=== PATIENT | female | born 1950 | race Caucasian/White ===

== ENCOUNTER 2019-09-20 04:20 | Inpatient (IN) | payer MEDICARE, OTHER ==
[~2019-09-20] VITALS: Ht 152.4 cm; Wt 40.2 kg
[2019-09-20] VITALS (11 sets, daily range): BP systolic 113–130; BP diastolic 52–73
--- NOTE | 2019-09-20 05:00 | NUR ---
Admit Note: Patient arrived to unit via gurney and escorted by EMS. Patient orientated to room and MD phoned for admit orders. Patient's VSS w/ mild c/o pain upon admission. Plan of Care discussed, admit packet reviewed and home meds/allergies verified with patient. Fracture protocol in place, with KAI and ice pack applied to LLE. Patient in bed, call light within reach and no other needs voiced at this time.
[2019-09-20] MEDS ORDERED: ONDANSETRON PF 4 MG/2 ML VIAL. IV PRN ×2 (05:15→10:30)
[2019-09-20] MEDS: IV NORMAL SALINE 1000ML BAG 1,000 ML IV SCH ×2 (05:50→14:49)
[2019-09-20] MEDS: fentaNYL PF VIAL 100 MCG/2 ML VIAL IVP PRN ×2 (05:50→10:05)
[2019-09-20] MEDS ORDERED: ceFAZolin SODIUM IV Push 1 GM VIAL. IVP ONE (07:45)
[2019-09-20 07:55] LABS: BASO % 1 % (0-3); EOS % 0 % (0-3); HEMATOCRIT 40.2 % (36.0-47.0); HEMOGLOBIN 13.5 g/dL (12.0-15.5); LYMPH # 0.5 x10^3/uL (1.0-4.8); LYMPH % 9 % (24-48); MEAN CORPUSCULAR HEMOGLOBIN 31 pg (25-35); MEAN CORPUSCULAR HGB CONC 34 g/dL (31-37); MEAN CORPUSCULAR VOLUME 92 fL (79-100); MONO # 0.3 x10^3/uL (0.0-1.1); MONO % 6 % (0-9); NEUT # 4.6 x10^3/uL (1.8-7.7); NEUT % 85 % (31-73); PLATELET COUNT 128 x10^3/uL (140-400); RED BLOOD COUNT 4.37 x10^6/uL (3.50-5.40); RED CELL DISTRIBUTION WIDTH 13.8 % (11.5-14.5); WHITE BLOOD COUNT 5.5 x10^3/uL (4.0-11.0)
[2019-09-20] MEDS ORDERED: AMLO5TAB10 PO (07:58)
[2019-09-20] MEDS ORDERED: ATOR80TA72 PO (07:58)
[2019-09-20] MEDS ORDERED: ASPI81TA50 PO (07:58)
[2019-09-20] MEDS ORDERED: ALBU2.5V8 IH (07:58)
[2019-09-20] MEDS ORDERED: MORPHINE SULFATE 5 MG, KETOROLAC 30MG VIAL 30 MG, ROPIVacaine 0.5% PF 60 ML, EPINEPHrin... INT ART ONE ×5 (08:00)
[2019-09-20 08:04] LABS: PROTHROMBIN TIME PATIENT 12.5 SEC (11.7-14.0)
[2019-09-20 08:10] LABS: ALBUMIN 3.3 g/dL (3.4-5.0); CALCIUM 8.5 mg/dL (8.5-10.1); CREATININE 0.6 mg/dL (0.6-1.0); GFR 99.1; POTASSIUM 4.2 mmol/L (3.5-5.1); TOTAL BILIRUBIN 0.5 mg/dL (0.2-1.0); TOTAL PROTEIN 6.5 g/dL (6.4-8.2)
--- NOTE | 2019-09-20 08:19 | NUR ---
Pt admitted with left hip fracture and surgery plans for today. Would benefit from PT/OT assessment post op. Please write PT/OT eval and treat orders if you agree. Addendum: 09/20/19 at 0819 by MARGRET SANZ PT Amended: Links added.
--- NOTE | 2019-09-20 08:50 | PDOC1 ---
History and Physical Date of Admission Date of Admission DATE: 09/20/19 TIME: 08:30 Identification/Chief Complaint Chief Complaint Right hip fracture Source Source: Patient History of Present Illness History of Present Illness Ms Drake is a 69yo F w/ PMHx COPD, HTN, smoker, HLD, multiple orthopedic surgeries who presented to [facility] ED complaints of falling when she was attempting to put her pants on. Found with left intertrochanteric hip fracture. No history immunosuppression and history of travel. No history of previous fractures. No recent sick contacts. EKG shows a` sinus rhythm at 96 bpm. No findings of acute STEMI with contralateral changes. Platelets 128, otherwise no abnormalities on labs After initial x-ray showed no obvious fracture patient was unable to ambulate due to left hip and leg pain. CT confirmed impacted intratrochanteric fracture of left femur. Past Medical History Cardiovascular: HTN, Hyperlipidemia Pulmonary: COPD Heme/Onc: No pertinent hx Hepatobiliary: No pertinent hx Psych: No pertinent hx Rheumatologic: No pertinent hx Infectious disease: No pertinent hx ENT: No pertinent hx Renal/: No pertinent hx Endocrine: No pertinent hx Dermatology: No pertinent hx Past Surgical History Past Surgical History Carpal tunnel - right, Right shoulder arthroscopy, Back surgery x2 Past Surgical History: Other Family History Family History: Hypertension Social History Smoke: 1 pack per day ALCOHOL: other Drugs: None Current Medications Current Medications Current Medications Ondansetron HCl (Zofran) 4 mg PRN Q4HRS PRN IV NAUSEA/VOMITING 1ST CHOICE; Start 09/20/19 at 05:15 Fentanyl Citrate (Fentanyl 2ml Vial) 50 mcg PRN Q4HRS PRN IVP SEVERE PAIN 7-10 Last administered on 09/20/19at 05:50; Start 09/20/19 at 05:15 Sodium Chloride 1,000 ml @ 75 mls/hr [id number] IV Last administered on 09/20/19at 05:50; Start 09/20/19 at 06:00 Morphine Sulfate 5 mg/Ketorolac Tromethamine 30 mg/Ropivacaine 60 ml/Epinephrine HCl 0.5 mg/Sodium Chloride 100 ml @ 100 mls/hr 1X ONCE INT ART ; Start 09/20/19 at 08:00; Stop 09/20/19 at 08:59 Cefazolin Sodium (Ancef) 1 gm 1X ONCE IVP ; Start 09/20/19 at 07:45; Stop 09/20/19 at 07:47; Status DC Active Scripts Active Reported Proair Hfa Inhaler (Albuterol Sulfate) 8.5 Gm Hfa.aer.ad 2 Puff IH PRN Q4-6HRS PRN 21 Days Aspir-Low (Aspirin) 81 Mg Tablet.dr 1 Tab PO QHS Amlodipine Besylate 5 Mg Tablet 5 Mg PO HS Atorvastatin Calcium 80 Mg Tablet 40 Mg PO QHS Allergies Allergies: Coded Allergies: No Known Allergies (Verified Allergy, Unknown, 09/20/19) ROS General: YES: Fatigue, Malaise; No: Chills, Night Sweats, Appetite, Other PSYCHOLOGICAL ROS: No: Anxiety, Behavioral Disorder, Concentration difficultie, Decreased libido, Depression, Disorientation, Hallucinations, Hostility, Irritablity, Memory difficulties, Mood Swings, Obsessive thoughts, Physical abuse, Sexual abuse, Sleep disturbances, Suicidal ideation, Other Eyes: No Blurry vision, No Decreased vision, No Double vision, No Dry eyes, No Excessive tearing, No Eye Pain, No Itchy Eyes, No Loss of vision, No Photophobia, No Scotomata, No Uses contacts, No Uses glasses, No Other HEENT: No: Heacaches, Visual Changes, Hearing change, Nasal congestion, Nasal discharge, Oral lesions, Sinus pain, Sore Throat, Epistaxis, Sneezing, Snoring, Tinnitus, Vertigo, Vocal changes, Other ALLERGY AND IMMUNOLOGY: No: Hives, Insect Bite Sensitivity, Itchy/Watery Eyes, Nasal Congestion, Post Nasal Drip, Seasonal Allergies, Other Hematological and Lymphatic: No: Bleeding Problems, Blood Clots, Blood Transfusions, Brusing, Night Sweats, Pallor, Swollen Lymph Nodes, Other ENDOCRINE: No: Breast Changes, Galactorrhea, Hair Pattern Changes, Hot Flashes, Malaise/lethargy, Mood Swings, Palpitations, Polydipsia/polyuria, Skin Changes, Temperature Intolerance, Unexpected Weight Changes, Other Breast: No New/Changing Breast Lumps, No Nipple changes, No Nipple discharge, No Other Respiratory: No: Cough, Hemoptysis, Orthopnea, Pleuritic Pain, Shortness of breath, SOB with excertion, Sputum Changes, Stridor, Tachypnea, Wheezing, Other Cardiovascular: No Chest Pain, No Palpitations, No Orthopnea, No Paroxysmal Noc. Dyspnea, No Edema, No Lt Headedness, No Other Gastrointestinal: No Nausea, No Vomiting, No Abdominal Pain, No Diarrhea, No Constipation, No Melena, No Hematochezia, No Other Genitourinary: No Dysuria, No Frequency, No Incontinence, No Hematuria, No Retention, No Discharge, No Urgency, No Pain, No Flank Pain, No Other, No , No , No , No , No , No , No Musculoskeletal: Yes Gait Disturbance, Yes Joint Pain, Yes Joint Swelling, Yes Muscle Pain; No Joint Stiffness, No Muscular Weakness, No Pain In:, No Swelling In:, No Other Neurological: Yes Gait Disturbance; No Behavorial Changes, No Bowel/Bladder ControlChng, No Confusion, No Dizziness, No Headaches, No Impaired Coord/balance, No Memory Loss, No Numbne ss/Tingling, No Seizures, No Speech Problems, No Tremors, No Visual Changes, No Weakness, No Other Skin: No Dry Skin, No Eczema, No Hair Changes, No Lumps, No Mole Changes, No Mottling, No Nail Changes, No Pruritus, No Rash, No Skin Lesion Changes, No Other, No Acne Physical Exam General: Alert, Oriented X3, Cooperative, mild distress HEENT: Atraumatic, PERRLA, EOMI, Mucous membr. moist/pink Lungs: Other (Scattered wheezing) Heart: S1S2, RRR, no thrills, no rubs, no gallops, no murmurs Abdomen: Normal bowel sounds, Soft, No tenderness, No hepatosplenomegaly, No masses Extremities: Other (left hip tender) Skin: No rashes, No breakdown, No significant lesion Neuro: Normal speech, Strength at 5/5 X4 ext, Normal tone, Sensation intact, Cranial nerves 3-12 NL, Reflexes 2+ Psych/Mental Status: Mental status NL, Mood NL Vitals Vitals Vital Signs Date Time Temp Pulse Resp B/P (MAP) Pulse Ox O2 Delivery O2 Flow Rate FiO2 09/20/19 08:00 Room Air 09/20/19 07:00 97.7 87 16 122/67 (85) 98 0.5 97.7 Labs Labs Laboratory Tests Test 09/20/19 07:40 White Blood Count 5.5 x10^3/uL (4.0-11.0) Red Blood Count 4.37 x10^6/uL (3.50-5.40) Hemoglobin 13.5 g/dL (12.0-15.5) Hematocrit 40.2 % (36.0-47.0) Mean Corpuscular Volume 92 fL (79-100) Mean Corpuscular Hemoglobin 31 pg (25-35) Mean Corpuscular Hemoglobin Concent 34 g/dL (31-37) Red Cell Distribution Width 13.8 % (11.5-14.5) Platelet Count 128 x10^3/uL (140-400) Neutrophils (%) (Auto) 85 % (31-73) Lymphocytes (%) (Auto) 9 % (24-48) Monocytes (%) (Auto) 6 % (0-9) Eosinophils (%) (Auto) 0 % (0-3) Basophils (%) (Auto) 1 % (0-3) Neutrophils # (Auto) 4.6 x10^3/uL (1.8-7.7) Lymphocytes # (Auto) 0.5 x10^3/uL (1.0-4.8) Monocytes # (Auto) 0.3 x10^3/uL (0.0-1.1) Eosinophils # (Auto) 0.0 x10^3/uL (0.0-0.7) Basophils # (Auto) 0.0 x10^3/uL (0.0-0.2) Prothrombin Time 12.5 SEC (11.7-14.0) Prothromb Time International Ratio 1.0 (0.8-1.1) Laboratory Tests Test 09/20/19 07:40 White Blood Count 5.5 x10^3/uL (4.0-11.0) Red Blood Count 4.37 x10^6/uL (3.50-5.40) Hemoglobin 13.5 g/dL (12.0-15.5) Hematocrit 40.2 % (36.0-47.0) Mean Corpuscular Volume 92 fL (79-100) Mean Corpuscular Hemoglobin 31 pg (25-35) Mean Corpuscular Hemoglobin Concent 34 g/dL (31-37) Red Cell Distribution Width 13.8 % (11.5-14.5) Platelet Count 128 x10^3/uL (140-400) Neutrophils (%) (Auto) 85 % (31-73) Lymphocytes (%) (Auto) 9 % (24-48) Monocytes (%) (Auto) 6 % (0-9) Eosinophils (%) (Auto) 0 % (0-3) Basophils (%) (Auto) 1 % (0-3) Neutrophils # (Auto) 4.6 x10^3/uL (1.8-7.7) Lymphocytes # (Auto) 0.5 x10^3/uL (1.0-4.8) Monocytes # (Auto) 0.3 x10^3/uL (0.0-1.1) Eosinophils # (Auto) 0.0 x10^3/uL (0.0-0.7) Basophils # (Auto) 0.0 x10^3/uL (0.0-0.2) Prothrombin Time 12.5 SEC (11.7-14.0) Prothromb Time International Ratio 1.0 (0.8-1.1) Images Images CT pelvis without contrast: No abnormality seen at the sacrum, iliac bones pubic bones or shift. The right proximal femur is intact. The left proximal femur however shows a i ntratrochanteric fracture with impaction. Hip joints are maintained. IMPRESSION: Impacted intratrochanteric fracture of the left femur. CT lumbar spine without contrast: The vertebral bodies of the lumbar spine are intact with no evidence of acute fracture or subluxation. The posterior elements are intact. The intervertebral disc at the L1-2, L2-3 and L3-4 disc levels are maintained and there is no spinal stenosis. At the L4-5 disc level, there is moderate loss of disc height and vacuum phenomena present in with the hypertrophic facet changes bilaterally there is moderate central canal stenosis as well as bilateral lateral recess stenosis without significant neural foraminal stenosis. At the L5-S1 disc level there is severe loss of disc height and back disc phenomena and there is some posterior disc bulging and facet hypertrophy but no significant spinal stenosis is evident. No acute abnormality seen at the apex. Sacroiliac joints are maintained. IMPRESSION: Degenerative disc disease at the L4-5 and L5-S1 disc levels with moderate central canal and bilateral lateral recess stenosis at the L4-5 level but without significant stenosis at the L5-S1 disc level. Single view pelvis and single view left hip dated 09/19/2019. AP view pelvis shows normal bony alignment. No displaced fracture. No acute osseous or articular abnormality. Pelvic ring is intact. There is mild spondylotic change of the lower lumbar spine with sacralization of L5 on the left. Single view left hip shows normal bony alignment. No displaced fracture. Mild hypertrophic change of the left hip joint. No acute osseous or articular abnormality. IMPRESSION: 1. No evidence of displaced left hip fracture. If there is persistent clinical concern for occult fracture or insufficiency fracture, MRI would better evaluate. 2. Degenerative changes as described. Single view chest dated 09/19/2019. Single upright portable exam performed. Heart and mediastinal contours within normal limits. Lungs are somewhat hyperinflated but otherwise clear. No co nsolidation or pleural effusion. No pneumothorax. No apparent rib fracture. IMPRESSION: No acute radiographic abnormality. VTE Prophylaxis Ordered VTE Prophylaxis Devices: No VTE Pharmacological Prophylaxi: Yes Assessment/Plan Assessment/Plan A/P: Fall - traumatic, accidental. WIll have PT work on balance post-operatively Left hip fracture - Intertrochanteric. To OR. No further testing necessary. Pain control COPD - will cont prn nebs Smoker - nicotine patch. Counseled on cessation HLD - cont statin OA - will cont pain control VItamin D deficiency - likely playing a role. 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
--- NOTE | 2019-09-20 09:28 | PDOC2 ---
DONLAUREN HAND REAMER 09/20/19 0928: CONSULT Date of Consult Date of Consult DATE: 09/20/19 TIME: 09:09 Reason for Consult Reason for Consult: Left hip pain after a fall at home while attempting to change clothes. Referring Physician Referring Physician: Dr. Taveras Identification/Chief Complaint Chief Complaint Left hip pain after fall at home with left intertrochanteric hip fracture. Source Source: Caregiver, Chart review, Patient History of Present Illness Reason for Visit: The patient was at her home last evening and was attempting to change close into her pajamas and had her leg get caught and fell landing onto her left hip. She was taken to [facility] emergency department and had an x-ray at that point which was inconclusive and was followed with a CT scan that showed the left hip fracture. He was transferred by ambulance to [facility] Past Medical History Cardiovascular: No pertinent hx Pulmonary: COPD Infectious disease: Other ( has a history of MRSA) Past Surgical History Past Surgical History: Hysterectomy, Other (the patient has had right shoulder surgery 2 and carpal tunnel release on both wrists.) Social History 2 packs per day (and one half packs per day) ALCOHOL: rare Drugs: None Lives: with Family Domestic Violence: Neg Current Problem List Problem List COPD ,right hip fracture Current Medications Current Medications Current Medications Ondansetron HCl (Zofran) 4 mg PRN Q4HRS PRN IV NAUSEA/VOMITING 1ST CHOICE; Start 09/20/19 at 05:15 Fentanyl Citrate (Fentanyl 2ml Vial) 50 mcg PRN Q4HRS PRN IVP SEVERE PAIN 7-10 Last administered on 09/20/19at 05:50; Start 09/20/19 at 05:15 Sodium Chloride 1,000 ml @ 75 mls/hr [id number] IV Last administered on 09/20/19at 05:50; Start 09/20/19 at 06:00 Morphine Sulfate 5 mg/Ketorolac Tromethamine 30 mg/Ropivacaine 60 ml/Epinephrine HCl 0.5 mg/Sodium Chloride 100 ml @ 100 mls/hr 1X ONCE INT ART ; Start 09/20/19 at 08:00; Stop 09/20/19 at 08:59 Cefazolin Sodium (Ancef) 1 gm 1X ONCE IVP ; Start 09/20/19 at 07:45; Stop 09/20/19 at 07:47; Status DC Active Scripts Active Reported Proair Hfa Inhaler (Albuterol Sulfate) 8.5 Gm Hfa.aer.ad 2 Puff IH PRN Q4-6HRS PRN 21 Days Aspir-Low (Aspirin) 81 Mg Tablet.dr 1 Tab PO QHS Amlodipine Besylate 5 Mg Tablet 5 Mg PO HS Atorvastatin Calcium 80 Mg Tablet 40 Mg PO QHS Allergies Allergies: Coded Allergies: No Known Allergies (Verified Allergy, Unknown, 09/20/19) Physical Exam General: Alert, Cooperative, moderate distress Extremities: No clubbing, No cyanosis, Normal pulses Neuro: Normal speech MUSCULOSKELETAL: Abnormal exam of right (patient is unable to move her left leg related to pain. She is able to move her toes, feet and ankles without difficulty bilaterally. The left leg is shortened and externally rotated.) Vitals VITALS Vital Signs Date Time Temp Pulse Resp B/P (MAP) Pulse Ox O2 Delivery O2 Flow Rate FiO2 09/20/19 08:00 Room Air 09/20/19 07:00 97.7 87 16 122/67 (85) 98 0.5 97.7 Labs Labs Laboratory Tests Test 09/20/19 07:40 White Blood Count 5.5 x10^3/uL (4.0-11.0) Red Blood Count 4.37 x10^6/uL (3.50-5.40) Hemoglobin 13.5 g/dL (12.0-15.5) Hematocrit 40.2 % (36.0-47.0) Mean Corpuscular Volume 92 fL (79-100) Mean Corpuscular Hemoglobin 31 pg (25-35) Mean Corpuscular Hemoglobin Concent 34 g/dL (31-37) Red Cell Distribution Width 13.8 % (11.5-14.5) Platelet Count 128 x10^3/uL (140-400) Neutrophils (%) (Auto) 85 % (31-73) Lymphocytes (%) (Auto) 9 % (24-48) Monocytes (%) (Auto) 6 % (0-9) Eosinophils (%) (Auto) 0 % (0-3) Basophils (%) (Auto) 1 % (0-3) Neutrophils # (Auto) 4.6 x10^3/uL (1.8-7.7) Lymphocytes # (Auto) 0.5 x10^3/uL (1.0-4.8) Monocytes # (Auto) 0.3 x10^3/uL (0.0-1.1) Eosinophils # (Auto) 0.0 x10^3/uL (0.0-0.7) Basophils # (Auto) 0.0 x10^3/uL (0.0-0.2) Prothrombin Time 12.5 SEC (11.7-14.0) Prothromb Time International Ratio 1.0 (0.8-1.1) Sodium Level 142 mmol/L (136-145) Potassium Level 4.2 mmol/L (3.5-5.1) Chloride Level 103 mmol/L (98-107) Carbon Dioxide Level 32 mmol/L (21-32) Anion Gap 7 (6-14) Blood Urea Nitrogen 9 mg/dL (7-20) Creatinine 0.6 mg/dL (0.6-1.0) Estimated GFR (Cockcroft-Gault) 99.1 BUN/Creatinine Ratio 15 (6-20) Glucose Level 118 mg/dL (70-99) Calcium Level 8.5 mg/dL (8.5-10.1) Total Bilirubin 0.5 mg/dL (0.2-1.0) Aspartate Amino Transf (AST/SGOT) 22 U/L (15-37) Alanine Aminotransferase (ALT/SGPT) 27 U/L (14-59) Alkaline Phosphatase 106 U/L (46-116) Total Protein 6.5 g/dL (6.4-8.2) Albumin 3.3 g/dL (3.4-5.0) Albumin/Globulin Ratio 1.0 (1.0-1.7) Laboratory Tests Test 09/20/19 07:40 White Blood Count 5.5 x10^3/uL (4.0-11.0) Red Blood Count 4.37 x10^6/uL (3.50-5.40) Hemoglobin 13.5 g/dL (12.0-15.5) Hematocrit 40.2 % (36.0-47.0) Mean Corpuscular Volume 92 fL (79-100) Mean Corpuscular Hemoglobin 31 pg (25-35) Mean Corpuscular Hemoglobin Concent 34 g/dL (31-37) Red Cell Distribution Width 13.8 % (11.5-14.5) Platelet Count 128 x10^3/uL (140-400) Neutrophils (%) (Auto) 85 % (31-73) Lymphocytes (%) (Auto) 9 % (24-48) Monocytes (%) (Auto) 6 % (0-9) Eosinophils (%) (Auto) 0 % (0-3) Basophils (%) (Auto) 1 % (0-3) Neutrophils # (Auto) 4.6 x10^3/uL (1.8-7.7) Lymphocytes # (Auto) 0.5 x10^3/uL (1.0-4.8) Monocytes # (Auto) 0.3 x10^3/uL (0.0-1.1) Eosinophils # (Auto) 0.0 x10^3/uL (0.0-0.7) Basophils # (Auto) 0.0 x10^3/uL (0.0-0.2) Prothrombin Time 12.5 SEC (11.7-14.0) Prothromb Time International Ratio 1.0 (0.8-1.1) Sodium Level 142 mmol/L (136-145) Potassium Level 4.2 mmol/L (3.5-5.1) Chloride Level 103 mmol/L (98-107) Carbon Dioxide Level 32 mmol/L (21-32) Anion Gap 7 (6-14) Blood Urea Nitrogen 9 mg/dL (7-20) Creatinine 0.6 mg/dL (0.6-1.0) Estimated GFR (Cockcroft-Gault) 99.1 BUN/Creatinine Ratio 15 (6-20) Glucose Level 118 mg/dL (70-99) Calcium Level 8.5 mg/dL (8.5-10.1) Total Bilirubin 0.5 mg/dL (0.2-1.0) Aspartate Amino Transf (AST/SGOT) 22 U/L (15-37) Alanine Aminotransferase (ALT/SGPT) 27 U/L (14-59) Alkaline Phosphatase 106 U/L (46-116) Total Protein 6.5 g/dL (6.4-8.2) Albumin 3.3 g/dL (3.4-5.0) Albumin/Globulin Ratio 1.0 (1.0-1.7) Images Images The x-rays from [facility] were inconclusive on the left hip and a CT was performed and dictated no abnormality in the sacrum, iliac bones or right femur. The left proximal femur shows an intertrochanteric fracture with impaction. CT of the lumbar spine indicated no evidence of acute fracture or subluxation there was indication of degenerative disc disease at L4-5 and L5-S1. Assessment/Plan Assessment/Plan Patient with fall at home and received an left hip intertrochanteric impacted fracture. The patient will require surgical fixation with the plan of closed reduction and intramedullary fixation. Patient has intact distal pulses and is able to move her feet, toes and ankle without difficulty. The left hip is externally rotated and shortened. She is nothing by mouth and will proceed to surgery later today with ZULMA Aviles II, MD 09/20/19 1153: CONSULT Assessment/Plan Assessment/Plan Patient was seen and examined by myself. I formulated the treatment plan and discussed the risks, benefits, and alternatives to surgery with the patient and her . Intertrochanteric hip fracture seen on x-ray and CAT scan, we will plan on proceeding with a short intramedullary nail. LAUREN OCHOA APRN Sep 20, 2019 09:28 ZULMA HOFFMANN II, MD Sep 20, 2019 11:53
[2019-09-20] MEDS ORDERED: IV RINGERS,LACTATED 1000ML 1,000 ML IV SCH (10:26)
[2019-09-20] MEDS ORDERED: LIDOCAINE 1% PF 2 ML VIAL. ID PRN (10:30)
[2019-09-20] MEDS ORDERED: HYDROmorphone 2 MG/ML VIAL IV PRN (10:30)
[2019-09-20] MEDS ORDERED: fentaNYL PF VIAL 100 MCG/2 ML VIAL IV PRN (10:30)
[2019-09-20] MEDS ORDERED: PROCHLORPERAZINE 10 MG/2 ML VIAL. IV PRN (10:30)
[2019-09-20] MEDS ORDERED: MORPHINE SULFATE 2 MG/ML VIAL. IV PRN (10:30)
--- NOTE | 2019-09-20 10:36 | NUR ---
SW following. Discussed with RN, pt from home with , pt having surgery today. SW will continue to follow.
[2019-09-20] MEDS ORDERED: LIDOCAINE 2% PF 5 ML VIAL. ONE (10:54)
[2019-09-20] MEDS ORDERED: ONDANSETRON PF 4 MG/2 ML VIAL. ONE (10:54)
[2019-09-20] MEDS ORDERED: PROPOFOL 20 ML IV ONE (10:54)
[2019-09-20] MEDS ORDERED: DEXAMETHASONE SOD PHOS 4 MG/ML VIAL ONE (10:54)
[2019-09-20] MEDS ORDERED: fentaNYL PF VIAL 100 MCG/2 ML VIAL ONE ×3 (10:56→14:06)
--- NOTE | 2019-09-20 11:56 | PDOC4 ---
Operative Note Operative Note Date of procedure: 09/20/2019 Surgeon: Brown Hoffmann Asst.: Saulo Hall, certified nursing assistant Preoperative diagnosis: Closed, displaced, comminuted, left intertrochanteric h ip fracture Postoperative diagnosis: Same Procedure performed: Closed reduction and intramedullary nailing of left hip fracture Anesthesia: Gen. Findings: Acute fracture Blood loss: 150mL Complications: none Components inserted: [employer] TriGen InterTAN nail, 10 x 18, 90 mm lag screw, 30 mm compression screw, 25 mm distal interlocking screw Reason for procedure: Patient is a very pleasant elderly female who had a ground-level fall sustaining the above injury. Id seen her in consultation, please see my consult note for full details. We have discussed the risks, benefits, and alternatives to the above surgery and she wished to proceed. Description of procedure: Patient was greeted in the preoperative area by myself for the correct extremity was verified and marked. She was taken to the operative suite and her antibiotics were started as she was brought back. Once in the operating room, she underwent successful induction of a general anesthetic and was then transferred gently supine to the fracture table. She was placed into the appropriate position, left leg in a traction ski boot and right leg in the well-leg santiago. Padded perineal post was used. Her arms were secured above her chest across a pillow. I then brought in C-arm and perform a reduction maneuver confirming adequate reduction under biplanar fluoroscopy. After this, the left hip and leg were prepped and draped in our usual sterile fashion and we conducted our standard preoperative timeout. After this, I palpated for her greater trochanter and ASIS and alexa a line on skin at the intersection point of these, I then made my skin incision and bluntly dissected down to the tip of the greater trochanter and used biplanar fluoroscopy to identify an appropriate starting point for my guidepin which I then advanced down past the lesser trochanter. I then gained entry to the proximal femur with the entry reamer using the soft tissue protector. After this I impacted my nail into position using fluoroscopy as a guide. I then placed the lateral trocar again skin, and incised skin in accordance with this and bluntly split down to bone. I then seated the trochars and used biplanar fluoroscopy to achieve as close to a center center position with the tip of my guidepin as I was able to. I then used my lateral entry drill and then placed my derotation bar. I then measured and drilled for my lag screw. After this I placed my lag screw followed by my compression screw. I then removed this trocar and placed the distal interlocking screw trocar again skin and made a stab incision and spread down to bone. I then seated this trocar and drilled and measured and then subsequently placed my d istal interlocking screw. I then remove the insertion handle and trochars and took my final images. I was satisfied with fracture reduction and hardware position. The wounds were thoroughly irrigated. I injected my periarticular mixture into the nash-incisional soft tissues. Deep layers were closed with simple interrupted 0 Vicryl. Inverted interrupted 2-0 Vicryl was used for subcu taneous tissue and ana for skin. Sterile dressing was applied after the hip and leg were cleansed and dried. Traction was released after placement of the distal interlocking screw. The bed was reassembled and the perineal post was removed. She was laid gently supine on the fracture table. She was transferred gently supine to the hospital bed and taken to PACU in a stable and extubated condition. Postoperative plan is to allow full weightbearing. She will receive DVT and antibiotic prophylaxis. Shell be readmitted to the hospitalist. She will also receive PT and OT. BROWN HOFFMANN II, MD Sep 20, 2019 11:56
[2019-09-20] MEDS ORDERED: ALBUTEROL SULFATE 2.5 MG/3 ML NEBU. ONE (12:12)
[2019-09-20] MEDS ORDERED: ALBUTEROL SULFATE 8GM INHALER. INH ONE (12:12)
[2019-09-20] MEDS: fentaNYL PF VIAL 100 MCG/2 ML VIAL IV PRN ×3 (13:46→14:08)
[2019-09-20] MEDS ORDERED: ALBUTEROL SULFATE 2.5 MG/3 ML NEBU. INH PRN (14:30)
[2019-09-20] MEDS ORDERED: NICOTINE 21MG PATCH. TD SCH (14:45)
[2019-09-20] MEDS ORDERED: fentaNYL PF VIAL 100 MCG/2 ML VIAL IVP ONE (14:45)
[2019-09-20] MEDS: CHOLECALCIFEROL (VITAMIN D3) 5,000 UNIT CAPSULE PO SCH (14:47)
[2019-09-20] MEDS: ceFAZolin SODIUM IV Push 1 GM VIAL. IVP SCH (19:39)
[2019-09-20] MEDS: oxyCODONE/APAP 5/325 1 TAB TABLET PO PRN (19:40)
[2019-09-20] MEDS: ASPIRIN ENTERIC COATED 81 MG TABLET.DR. PO SCH (19:42)
[2019-09-20] MEDS: ATORVASTATIN CALCIUM 40 MG TABLET. PO SCH (19:42)
[2019-09-20] MEDS: amLODIPine BESYLATE 5 MG TABLET PO SCH (19:44)
[2019-09-20] MEDS ORDERED: NICOTINE 21MG PATCH. TD ONE (21:45)
[2019-09-21] VITALS (7 sets, daily range): BP systolic 112–130; BP diastolic 57–70
[2019-09-21] MEDS: ceFAZolin SODIUM IV Push 1 GM VIAL. IVP SCH ×3 (04:14→21:40)
[2019-09-21] MEDS: oxyCODONE/APAP 5/325 1 TAB TABLET PO PRN ×5 (04:16→21:36)
[2019-09-21 07:43] LABS: BASO % 0 % (0-3); EOS % 0 % (0-3); HEMATOCRIT 32.6 % (36.0-47.0); HEMOGLOBIN 10.9 g/dL (12.0-15.5); LYMPH # 0.7 x10^3/uL (1.0-4.8); LYMPH % 14 % (24-48); MEAN CORPUSCULAR HEMOGLOBIN 31 pg (25-35); MEAN CORPUSCULAR HGB CONC 34 g/dL (31-37); MEAN CORPUSCULAR VOLUME 94 fL (79-100); MONO # 0.3 x10^3/uL (0.0-1.1); MONO % 6 % (0-9); NEUT # 3.9 x10^3/uL (1.8-7.7); NEUT % 79 % (31-73); PLATELET COUNT 93 x10^3/uL (140-400); RED BLOOD COUNT 3.48 x10^6/uL (3.50-5.40); WHITE BLOOD COUNT 4.9 x10^3/uL (4.0-11.0)
[2019-09-21] MEDS ORDERED: ENOXAPARIN 40 MG/0.4 ML SYRINGE. SQ SCH (08:00)
[2019-09-21 08:03] LABS: CALCIUM 8.1 mg/dL (8.5-10.1); CREATININE 0.5 mg/dL (0.6-1.0); GFR 122.3
[2019-09-21] MEDS: IV NORMAL SALINE 1000ML BAG 1,000 ML IV SCH ×2 (08:03→21:40)
[2019-09-21] MEDS: CHOLECALCIFEROL (VITAMIN D3) 5,000 UNIT CAPSULE PO SCH (08:03)
--- NOTE | 2019-09-21 08:09 | PDOC ---
ORTHO PROGRESS NOTES Subjective Pain better today, no complaints Vitals Vital Signs Date Time Temp Pulse Resp B/P (MAP) Pulse Ox O2 Delivery O2 Flow Rate FiO2 09/21/19 05:16 16 98 Nasal Cannula 0.5 09/21/19 03:38 98.4 87 123/67 (85) 98.4 Labs Laboratory Tests Test 09/20/19 07:40 09/21/19 06:05 White Blood Count 5.5 x10^3/uL (4.0-11.0) 4.9 x10^3/uL (4.0-11.0) Red Blood Count 4.37 x10^6/uL (3.50-5.40) 3.48 x10^6/uL (3.50-5.40) Hemoglobin 13.5 g/dL (12.0-15.5) 10.9 g/dL (12.0-15.5) Hematocrit 40.2 % (36.0-47.0) 32.6 % (36.0-47.0) Mean Corpuscular Volume 92 fL (79-100) 94 fL (79-100) Mean Corpuscular Hemoglobin 31 pg (25-35) 31 pg (25-35) Mean Corpuscular Hemoglobin Concent 34 g/dL (31-37) 34 g/dL (31-37) Red Cell Distribution Width 13.8 % (11.5-14.5) 14.0 % (11.5-14.5) Platelet Count 128 x10^3/uL (140-400) 93 x10^3/uL (140-400) Neutrophils (%) (Auto) 85 % (31-73) 79 % (31-73) Lymphocytes (%) (Auto) 9 % (24-48) 14 % (24-48) Monocytes (%) (Auto) 6 % (0-9) 6 % (0-9) Eosinophils (%) (Auto) 0 % (0-3) 0 % (0-3) Basophils (%) (Auto) 1 % (0-3) 0 % (0-3) Neutrophils # (Auto) 4.6 x10^3/uL (1.8-7.7) 3.9 x10^3/uL (1.8-7.7) Lymphocytes # (Auto) 0.5 x10^3/uL (1.0-4.8) 0.7 x10^3/uL (1.0-4.8) Monocytes # (Auto) 0.3 x10^3/uL (0.0-1.1) 0.3 x10^3/uL (0.0-1.1) Eosinophils # (Auto) 0.0 x10^3/uL (0.0-0.7) 0.0 x10^3/uL (0.0-0.7) Basophils # (Auto) 0.0 x10^3/uL (0.0-0.2) 0.0 x10^3/uL (0.0-0.2) Prothrombin Time 12.5 SEC (11.7-14.0) Prothromb Time International Ratio 1.0 (0.8-1.1) Sodium Level 142 mmol/L (136-145) 143 mmol/L (136-145) Potassium Level 4.2 mmol/L (3.5-5.1) 4.0 mmol/L (3.5-5.1) Chloride Level 103 mmol/L (98-107) 107 mmol/L (98-107) Carbon Dioxide Level 32 mmol/L (21-32) 31 mmol/L (21-32) Anion Gap 7 (6-14) 5 (6-14) Blood Urea Nitrogen 9 mg/dL (7-20) 10 mg/dL (7-20) Creatinine 0.6 mg/dL (0.6-1.0) 0.5 mg/dL (0.6-1.0) Estimated GFR (Cockcroft-Gault) 99.1 122.3 BUN/Creatinine Ratio 15 (6-20) Glucose Level 118 mg/dL (70-99) 112 mg/dL (70-99) Calcium Level 8.5 mg/dL (8.5-10.1) 8.1 mg/dL (8.5-10.1) Total Bilirubin 0.5 mg/dL (0.2-1.0) Aspartate Amino Transf (AST/SGOT) 22 U/L (15-37) Alanine Aminotransferase (ALT/SGPT) 27 U/L (14-59) Alkaline Phosphatase 106 U/L (46-116) Total Protein 6.5 g/dL (6.4-8.2) Albumin 3.3 g/dL (3.4-5.0) Albumin/Globulin Ratio 1.0 (1.0-1.7) 25-Hydroxy Vitamin D Total 7.6 ng/mL (30-100) Laboratory Tests Test 09/21/19 06:05 White Blood Count 4.9 x10^3/uL (4.0-11.0) Red Blood Count 3.48 x10^6/uL (3.50-5.40) Hemoglobin 10.9 g/dL (12.0-15.5) Hematocrit 32.6 % (36.0-47.0) Mean Corpuscular Volume 94 fL (79-100) Mean Corpuscular Hemoglobin 31 pg (25-35) Mean Corpuscular Hemoglobin Concent 34 g/dL (31-37) Red Cell Distribution Width 14.0 % (11.5-14.5) Platelet Count 93 x10^3/uL (140-400) Neutrophils (%) (Auto) 79 % (31-73) Lymphocytes (%) (Auto) 14 % (24-48) Monocytes (%) (Auto) 6 % (0-9) Eosinophils (%) (Auto) 0 % (0-3) Basophils (%) (Auto) 0 % (0-3) Neutrophils # (Auto) 3.9 x10^3/uL (1.8-7.7) Lymphocytes # (Auto) 0.7 x10^3/uL (1.0-4.8) Monocytes # (Auto) 0.3 x10^3/uL (0.0-1.1) Eosinophils # (Auto) 0.0 x10^3/uL (0.0-0.7) Basophils # (Auto) 0.0 x10^3/uL (0.0-0.2) Sodium Level 143 mmol/L (136-145) Potassium Level 4.0 mmol/L (3.5-5.1) Chloride Level 107 mmol/L (98-107) Carbon Dioxide Level 31 mmol/L (21-32) Anion Gap 5 (6-14) Blood Urea Nitrogen 10 mg/dL (7-20) Creatinine 0.5 mg/dL (0.6-1.0) Estimated GFR (Cockcroft-Gault) 122.3 Glucose Level 112 mg/dL (70-99) Calcium Level 8.1 mg/dL (8.5-10.1) Notes A and A in bed normal m/s LLE Assessment and Plan PT/OT ny out once able to ambulate ZULMA HOFFMANN II, MD Sep 21, 2019 08:09
--- NOTE | 2019-09-21 11:01 | PDOC ---
PROGRESS NOTES Chief Complaint Chief Complaint A/P: Fall - traumatic, accidental. WIll have PT work on balance post-operatively Left hip fracture - Intertrochanteric fx s/p ORIF with TFN on 09/20/2019. No further testing necessary. Pain control COPD - will cont prn nebs Smoker - nicotine patch. Counseled on cessation HLD - cont statin OA - will cont pain control VItamin D deficiency - likely playing a role. 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 Found with left intertrochanteric hip fracture. No history immunosuppression and history of travel. No history of previous fractures. No recent sick contacts. EKG shows a` sinus rhythm at 96 bpm. No findings of acute STEMI with contralate ral changes. Platelets 128, otherwise no abnormalities on labs After initial x-ray showed no obvious fracture patient was unable to ambulate due to left hip and leg pain. CT confirmed impacted intratrochanteric fracture of left femur. 09/19: ORIF with transfemoral nail Hb 10 today. Feeling ok. Working with therapy, ny out. No CP or SOB. She wishes for home for rehabilitation Vitals Vitals Vital Signs Date Time Temp Pulse Resp B/P (MAP) Pulse Ox O2 Delivery O2 Flow Rate FiO2 09/21/19 09:11 Room Air 09/21/19 07:00 97.8 84 16 127/57 (80) 96 97.8 09/21/19 05:16 0.5 Physical Exam General: Alert, Oriented X3, Cooperative, mild distress Abdomen: Normal bowel sounds, Soft, No tenderness, No hepatosplenomegaly, No masses Extremities: Other (left hip tender) Skin: No rashes, No breakdown, No significant lesion Labs LABS Laboratory Tests Test 09/21/19 06:05 White Blood Count 4.9 x10^3/uL (4.0-11.0) Red Blood Count 3.48 x10^6/uL (3.50-5.40) Hemoglobin 10.9 g/dL (12.0-15.5) Hematocrit 32.6 % (36.0-47.0) Mean Corpuscular Volume 94 fL (79-100) Mean Corpuscular Hemoglobin 31 pg (25-35) Mean Corpuscular Hemoglobin Concent 34 g/dL (31-37) Red Cell Distribution Width 14.0 % (11.5-14.5) Platelet Count 93 x10^3/uL (140-400) Neutrophils (%) (Auto) 79 % (31-73) Lymphocytes (%) (Auto) 14 % (24-48) Monocytes (%) (Auto) 6 % (0-9) Eosinophils (%) (Auto) 0 % (0-3) Basophils (%) (Auto) 0 % (0-3) Neutrophils # (Auto) 3.9 x10^3/uL (1.8-7.7) Lymphocytes # (Auto) 0.7 x10^3/uL (1.0-4.8) Monocytes # (Auto) 0.3 x10^3/uL (0.0-1.1) Eosinophils # (Auto) 0.0 x10^3/uL (0.0-0.7) Basophils # (Auto) 0.0 x10^3/uL (0.0-0.2) Sodium Level 143 mmol/L (136-145) Potassium Level 4.0 mmol/L (3.5-5.1) Chloride Level 107 mmol/L (98-107) Carbon Dioxide Level 31 mmol/L (21-32) Anion Gap 5 (6-14) Blood Urea Nitrogen 10 mg/dL (7-20) Creatinine 0.5 mg/dL (0.6-1.0) Estimated GFR (Cockcroft-Gault) 122.3 Glucose Level 112 mg/dL (70-99) Calcium Level 8.1 mg/dL (8.5-10.1) Comment Review of Relevant I have reviewed the following items evelyn (where applicable) has been applied. Labs Laboratory Tests Test 09/20/19 07:40 09/21/19 06:05 White Blood Count 5.5 x10^3/uL (4.0-11.0) 4.9 x10^3/uL (4.0-11.0) Red Blood Count 4.37 x10^6/uL (3.50-5.40) 3.48 x10^6/uL (3.50-5.40) Hemoglobin 13.5 g/dL (12.0-15.5) 10.9 g/dL (12.0-15.5) Hematocrit 40.2 % (36.0-47.0) 32.6 % (36.0-47.0) Mean Corpuscular Volume 92 fL (79-100) 94 fL (79-100) Mean Corpuscular Hemoglobin 31 pg (25-35) 31 pg (25-35) Mean Corpuscular Hemoglobin Concent 34 g/dL (31-37) 34 g/dL (31-37) Red Cell Distribution Width 13.8 % (11.5-14.5) 14.0 % (11.5-14.5) Platelet Count 128 x10^3/uL (140-400) 93 x10^3/uL (140-400) Neutrophils (%) (Auto) 85 % (31-73) 79 % (31-73) Lymphocytes (%) (Auto) 9 % (24-48) 14 % (24-48) Monocytes (%) (Auto) 6 % (0-9) 6 % (0-9) Eosinophils (%) (Auto) 0 % (0-3) 0 % (0-3) Basophils (%) (Auto) 1 % (0-3) 0 % (0-3) Neutrophils # (Auto) 4.6 x10^3/uL (1.8-7.7) 3.9 x10^3/uL (1.8-7.7) Lymphocytes # (Auto) 0.5 x10^3/uL (1.0-4.8) 0.7 x10^3/uL (1.0-4.8) Monocytes # (Auto) 0.3 x10^3/uL (0.0-1.1) 0.3 x10^3/uL (0.0-1.1) Eosinophils # (Auto) 0.0 x10^3/uL (0.0-0.7) 0.0 x10^3/uL (0.0-0.7) Basophils # (Auto) 0.0 x10^3/uL (0.0-0.2) 0.0 x10^3/uL (0.0-0.2) Prothrombin Time 12.5 SEC (11.7-14.0) Prothromb Time International Ratio 1.0 (0.8-1.1) Sodium Level 142 mmol/L (136-145) 143 mmol/L (136-145) Potassium Level 4.2 mmol/L (3.5-5.1) 4.0 mmol/L (3.5-5.1) Chloride Level 103 mmol/L (98-107) 107 mmol/L (98-107) Carbon Dioxide Level 32 mmol/L (21-32) 31 mmol/L (21-32) Anion Gap 7 (6-14) 5 (6-14) Blood Urea Nitrogen 9 mg/dL (7-20) 10 mg/dL (7-20) Creatinine 0.6 mg/dL (0.6-1.0) 0.5 mg/dL (0.6-1.0) Estimated GFR (Cockcroft-Gault) 99.1 122.3 BUN/Creatinine Ratio 15 (6-20) Glucose Level 118 mg/dL (70-99) 112 mg/dL (70-99) Calcium Level 8.5 mg/dL (8.5-10.1) 8.1 mg/dL (8.5-10.1) Total Bilirubin 0.5 mg/dL (0.2-1.0) Aspartate Amino Transf (AST/SGOT) 22 U/L (15-37) Alanine Aminotransferase (ALT/SGPT) 27 U/L (14-59) Alkaline Phosphatase 106 U/L (46-116) Total Protein 6.5 g/dL (6.4-8.2) Albumin 3.3 g/dL (3.4-5.0) Albumin/Globulin Ratio 1.0 (1.0-1.7) 25-Hydroxy Vitamin D Total 7.6 ng/mL (30-100) Laboratory Tests Test 09/21/19 06:05 White Blood Count 4.9 x10^3/uL (4.0-11.0) Red Blood Count 3.48 x10^6/uL (3.50-5.40) Hemoglobin 10.9 g/dL (12.0-15.5) Hematocrit 32.6 % (36.0-47.0) Mean Corpuscular Volume 94 fL (79-100) Mean Corpuscular Hemoglobin 31 pg (25-35) Mean Corpuscular Hemoglobin Concent 34 g/dL (31-37) Red Cell Distribution Width 14.0 % (11.5-14.5) Platelet Count 93 x10^3/uL (140-400) Neutrophils (%) (Auto) 79 % (31-73) Lymphocytes (%) (Auto) 14 % (24-48) Monocytes (%) (Auto) 6 % (0-9) Eosinophils (%) (Auto) 0 % (0-3) Basophils (%) (Auto) 0 % (0-3) Neutrophils # (Auto) 3.9 x10^3/uL (1.8-7.7) Lymphocytes # (Auto) 0.7 x10^3/uL (1.0-4.8) Monocytes # (Auto) 0.3 x10^3/uL (0.0-1.1) Eosinophils # (Auto) 0.0 x10^3/uL (0.0-0.7) Basophils # (Auto) 0.0 x10^3/uL (0.0-0.2) Sodium Level 143 mmol/L (136-145) Potassium Level 4.0 mmol/L (3.5-5.1) Chloride Level 107 mmol/L (98-107) Carbon Dioxide Level 31 mmol/L (21-32) Anion Gap 5 (6-14) Blood Urea Nitrogen 10 mg/dL (7-20) Creatinine 0.5 mg/dL (0.6-1.0) Estimated GFR (Cockcroft-Gault) 122.3 Glucose Level 112 mg/dL (70-99) Calcium Level 8.1 mg/dL (8.5-10.1) Medications Current Medications Ondansetron HCl (Zofran) 4 mg PRN Q4HRS PRN IV NAUSEA/VOMITING 1ST CHOICE; Start 09/20/19 at 05:15 Fentanyl Citrate (Fentanyl 2ml Vial) 50 mcg PRN Q4HRS PRN IVP SEVERE PAIN 7-10 Last administered on 09/20/19at 10:05; Start 09/20/19 at 05:15 Sodium Chloride 1,000 ml @ 75 mls/hr [id number] IV Last administered on 09/20/19at 14:49; Start 09/20/19 at 06:00 Morphine Sulfate 5 mg/Ketorolac Tromethamine 30 mg/Ropivacaine 60 ml/Epinephrine HCl 0.5 mg/Sodium Chloride 100 ml @ 100 mls/hr 1X ONCE INT ART Last administered on 09/20/19at 12:38; Start 09/20/19 at 08:00; Stop 09/20/19 at 08:59; Status DC Cefazolin Sodium (Ancef) 1 gm 1X ONCE IVP Last administered on 09/20/19at 12:10; Start 09/20/19 at 07:45; Stop 09/20/19 at 07:47; Status DC Ondansetron HCl (Zofran) 4 mg PRN Q6HRS PRN IV NAUSEA/VOMITING; Start 09/20/19 at 10:30; Stop 09/20/19 at 14:35; Status DC Fentanyl Citrate (Fentanyl 2ml Vial) 25 mcg PRN Q5MIN PRN IV MILD PAIN 1-3; Start 09/20/19 at 10:30; Stop 09/20/19 at 14:35; Status DC Fentanyl Citrate (Fentanyl 2ml Vial) 50 mcg PRN Q5MIN PRN IV MODERATE TO SEVERE PAIN Last administered on 09/20/19at 14:08; Start 09/20/19 at 10:30; Stop 09/20/19 at 14:35; Status DC Morphine Sulfate (Morphine Sulfate) 1 mg PRN Q10MIN PRN IV SEVERE PAIN 7-10; Start 09/20/19 at 10:30; Stop 09/20/19 at 14:35; Status DC Ringer's Solution 1,000 ml @ 30 mls/hr Q24H IV ; Start 09/20/19 at 10:26; Stop 09/20/19 at 14:35; Status DC Lidocaine HCl (Xylocaine-Mpf 1% 2ml Vial) 2 ml PRN 1X PRN ID PRIOR TO IV START; Start 09/20/19 at 10:30; Stop 09/20/19 at 14:36; Status DC Hydromorphone HCl (Dilaudid) 0.5 mg PRN Q10MIN PRN IV SEV PAIN, Second choice; Start 09/20/19 at 10:30; Stop 09/20/19 at 14:35; Status DC Prochlorperazine Edisylate (Compazine) 5 mg PACU PRN PRN IV NAUSEA, MRX1; Start 09/20/19 at 10:30; Stop 09/20/19 at 14:36; Status DC Propofol 20 ml @ As Directed STK-MED ONCE IV ; Start 09/20/19 at 10:54; Stop 09/20/19 at 10:55; Status DC Dexamethasone Sodium Phosphate (Decadron) 4 mg STK-MED ONCE .ROUTE ; Start 09/20/19 at 10:54; Stop 09/20/19 at 10:55; Status DC Lidocaine HCl (Lidocaine Pf 2% Vial) 5 ml STK-MED ONCE .ROUTE ; Start 09/20/19 at 10:54; Stop 09/20/19 at 10:55; Status DC Ondansetron HCl (Zofran) 4 mg STK-MED ONCE .ROUTE ; Start 09/20/19 at 10:54; Stop 09/20/19 at 10:55; Status DC Fentanyl Citrate (Fentanyl 2ml Vial) 100 mcg STK-MED ONCE .ROUTE ; Start 09/20/19 at 10:56; Stop 09/20/19 at 10:56; Status DC Enoxaparin Sodium (Lovenox 40mg Syringe) 40 mg Q24H SQ Last administered on 09/21/19at 08:03; Start 09/21/19 at 08:00 Oxycodone/ Acetaminophen (Percocet 5/325) 1 tab PRN Q4HRS PRN PO PAIN Last administered on 09/21/19at 09:11; Start 09/20/19 at 12:00 Cefazolin Sodium (Ancef) 1 gm Q8H IVP Last administered on 09/21/19at 04:14; Start 09/20/19 at 20:00; Stop 09/22/19 at 04:01 Albuterol Sulfate (Ventolin Hfa) 60 puff STK-MED ONCE INH ; Start 09/20/19 at 12:12; Stop 09/20/19 at 12:12; Status DC Albuterol Sulfate (Ventolin Neb Soln) 2.5 mg STK-MED ONCE .ROUTE ; Start 09/20/19 at 12:12; Stop 09/20/19 at 12:13; Status DC Fentanyl Citrate (Fentanyl 2ml Vial) 100 mcg STK-MED ONCE .ROUTE ; Start 09/20/19 at 13:44; Stop 09/20/19 at 13:44; Status DC Fentanyl Citrate (Fentanyl 2ml Vial) 100 mcg STK-MED ONCE .ROUTE ; Start 09/20/19 at 14:06; Stop 09/20/19 at 14:06; Status DC Vitamin D (Vitamin D3) 5,000 unit DAILY PO Last administered on 09/21/19at 08:03; Start 09/20/19 at 16:00 Albuterol Sulfate (Ventolin Neb Soln) 2.5 mg PRN Q4HRS PRN INH wheezing; Start 09/20/19 at 14:30 Amlodipine Besylate (Norvasc) 5 mg HS PO Last administered on 09/20/19at 19:44; Start 09/20/19 at 21:00 Aspirin (Ecotrin) 81 mg QHS PO Last administered on 09/20/19at 19:42; Start 09/20/19 at 21:00 Atorvastatin Calcium (Lipitor) 40 mg QHS PO Last administered on 09/20/19at 19:42; Start 09/20/19 at 21:00 Nicotine (Nicoderm Cq 21mg) 1 patch DAILY TD ; Start 09/20/19 at 14:45; Stop 09/21/19 at 08:23; Status DC Fentanyl Citrate (Fentanyl 2ml Vial) 50 mcg 1X ONCE IVP Last administered on 09/20/19at 14:42; Start 09/20/19 at 14:45; Stop 09/20/19 at 14:46; Status DC Nicotine (Nicoderm Cq 21mg) 1 patch 1X ONCE TD Last administered on 09/20/19at 21:42; Start 09/20/19 at 21:45; Stop 09/20/19 at 21:46; Status DC Nicotine (Nicoderm Cq 21mg) 1 patch QHS TD ; Start 09/21/19 at 21:00 Active Scripts Active Reported Proair Hfa Inhaler (Albuterol Sulfate) 8.5 Gm Hfa.aer.ad 2 Puff IH PRN Q4-6HRS PRN 21 Days Aspir-Low (Aspirin) 81 Mg Tablet.dr 1 Tab PO QHS Amlodipine Besylate 5 Mg Tablet 5 Mg PO HS Atorvastatin Calcium 80 Mg Tablet 40 Mg PO QHS Vitals/I & O Vital Sign - Last 24 Hours 309/20/19 09/20/19 09/20/19 13:23 13:23 13:40 13:46 Temp 98.3 98.3 98.3 98.3 Pulse 86 98 Resp 16 16 16 B/P (MAP) 113/51 145/68 Pulse Ox 100 100 100 O2 Delivery Mask Simple Mask Simple Mask Simple Mask O2 Flow Rate 10 10 10 10.0 09/20/19 09/20/19 09/20/19 09/20/19 13:55 13:59 14:08 14:10 Temp 98.3 98.3 98.3 98.3 Pulse 96 100 Resp 17 16 16 16 B/P (MAP) 133/62 137/68 Pulse Ox 100 96 98 98 O2 Delivery Simple Mask Room Air Nasal Cannula Simple Mask O2 Flow Rate 10.0 2.0 2.0 09/20/19 09/20/19 09/20/19 09/20/19 14:14 14:25 14:42 14:54 Temp 98.3 98.3 Pulse 96 105 Resp 16 16 B/P (MAP) 136/58 125/64 (84) Pulse Ox 98 98 98 O2 Delivery Nasal Cannula Nasal Cannula Nasal Cannula Nasal Cannula O2 Flow Rate 2 2 2.0 2.0 09/20/19 09/20/19 09/20/19 09/20/19 15:10 15:25 15:40 16:10 Pulse 97 99 100 88 B/P (MAP) 129/60 (83) 127/58 (81) 130/61 (84) 116/56 (76) Pulse Ox 99 98 97 98 O2 Delivery Nasal Cannula Nasal Cannula Nasal Cannula Nasal Cannula O2 Flow Rate 2.0 2.0 2.0 2.0 09/20/19 09/20/19 09/20/19 09/20/19 16:31 16:40 17:40 19:00 Temp 97.6 97.6 Pulse 98 91 91 Resp 18 B/P (MAP) 127/63 (84) 114/52 (72) 113/58 (76) Pulse Ox 98 96 98 97 O2 Delivery Nasal Cannula Nasal Cannula Nasal Cannula Nasal Cannula O2 Flow Rate 2.0 2.0 2.0 09/20/19 09/20/19 09/20/19 09/20/19 19:40 19:44 20:00 20:40 Pulse 100 Resp 16 16 B/P (MAP) 110/51 Pulse Ox 98 98 O2 Delivery Nasal Cannula Nasal Cannula Nasal Cannula O2 Flow Rate 2.0 1.0 1.0 09/20/19 09/21/19 09/21/19 09/21/19 23:33 03:38 04:16 05:16 Temp 98.3 98.4 98.3 98.4 Pulse 91 87 Resp 18 18 14 16 B/P (MAP) 117/53 (74) 123/67 (85) Pulse Ox 97 98 98 98 O2 Delivery Nasal Cannula Nasal Cannula Nasal Cannula Nasal Cannula O2 Flow Rate 2.0 2.0 0.5 0.5 09/21/19 09/21/19 09/21/19 07:00 08:05 09:11 Temp 97.8 97.8 Pulse 84 Resp 16 B/P (MAP) 127/57 (80) Pulse Ox 96 O2 Delivery Room Air Room Air Room Air Intake and Output 09/20/19 09/20/19 09/21/19 15:00 23:00 07:00 Intake Total 1200 ml 100 ml 1100 ml Output Total 150 ml 600 ml 690 ml Balance 1050 ml -500 ml 410 ml RANJAN LAWSON MD Sep 21, 2019 11:01
[2019-09-21] MEDS: FUROSEMIDE 40 MG TABLET. PO ONE ×2 (12:00→13:22)
--- NOTE | 2019-09-21 13:28 | NUR ---
OBIE following. Discussed with RN, PT/OT recommending SNU. OBIE spoke with pt, pt does not want to go to a facility due to coronavirus, wants to go home and have home health come into her home. Pt reported her and her daughter are able to help when home health isn't there. Pt does not have a preference as to which agency. OBIE faxed referral to [facility]. RN notified. Awaiting acceptance decision. Addendum: 09/21/19 at 1606 by RICKY RAGLAND [facility] has accepted pt for home health services. RN notified.
[2019-09-21] MEDS: PSYLLIUM HUSK (SUGAR FREE) 1 PKT PACKET PO SCH (13:30)
[2019-09-21] MEDS: POLYETHYLENE GLYCOL 3350 17 GM PACKET. PO SCH (13:30)
[2019-09-21] MEDS ORDERED: NICOTINE 21MG PATCH. TD SCH (21:00)
[2019-09-21] MEDS: ATORVASTATIN CALCIUM 40 MG TABLET. PO SCH (21:36)
[2019-09-21] MEDS: ASPIRIN ENTERIC COATED 81 MG TABLET.DR. PO SCH (21:36)
[2019-09-21] MEDS: amLODIPine BESYLATE 5 MG TABLET PO SCH (21:39)
[2019-09-22] MEDS: oxyCODONE/APAP 5/325 1 TAB TABLET PO PRN ×4 (01:38→14:22)
[2019-09-22 03:04] VITALS: BP 122/67
[2019-09-22] MEDS: ceFAZolin SODIUM IV Push 1 GM VIAL. IVP SCH (03:46)
[2019-09-22 05:06] LABS: BASO % 1 % (0-3); EOS % 1 % (0-3); HEMATOCRIT 34.5 % (36.0-47.0); HEMOGLOBIN 11.5 g/dL (12.0-15.5); LYMPH # 0.8 x10^3/uL (1.0-4.8); LYMPH % 11 % (24-48); MEAN CORPUSCULAR HEMOGLOBIN 31 pg (25-35); MEAN CORPUSCULAR HGB CONC 33 g/dL (31-37); MEAN CORPUSCULAR VOLUME 93 fL (79-100); MONO # 0.4 x10^3/uL (0.0-1.1); MONO % 6 % (0-9); NEUT # 5.4 x10^3/uL (1.8-7.7); NEUT % 81 % (31-73); PLATELET COUNT 101 x10^3/uL (140-400); RED BLOOD COUNT 3.72 x10^6/uL (3.50-5.40); RED CELL DISTRIBUTION WIDTH 14.2 % (11.5-14.5); WHITE BLOOD COUNT 6.7 x10^3/uL (4.0-11.0)
[2019-09-22 05:24] LABS: CALCIUM 8.4 mg/dL (8.5-10.1); CREATININE 0.5 mg/dL (0.6-1.0); GFR 122.3; POTASSIUM 3.7 mmol/L (3.5-5.1)
[2019-09-22 07:00] VITALS: BP 136/82
--- NOTE | 2019-09-22 07:22 | NUR ---
IP: Pt is mrsa screen + requiring contact precautions. Recommend Nozin/CHG decolonization.
--- NOTE | 2019-09-22 08:44 | NUR ---
OBIE following. Discussed with RN, pt from home with . Accepted with [facility]. Awaiting discharge paperwork and home health orders to fax to [facility]. OBIE will continue to follow. Addendum: 09/22/19 at 1205 by RICKY RAGLAND [facility]BIE faxed home health orders to [facility]. Pt discharging today.
[2019-09-22] MEDS: PSYLLIUM HUSK (SUGAR FREE) 1 PKT PACKET PO SCH (09:00)
[2019-09-22] MEDS: POLYETHYLENE GLYCOL 3350 17 GM PACKET. PO SCH (09:00)
[2019-09-22] MEDS: ENOXAPARIN 30 MG/0.3 ML SYRINGE. SQ SCH ×2 (09:10→12:05)
[2019-09-22] MEDS: IV NORMAL SALINE 1000ML BAG 1,000 ML IV SCH (09:10)
[2019-09-22] MEDS: CHOLECALCIFEROL (VITAMIN D3) 5,000 UNIT CAPSULE PO SCH (09:10)
--- NOTE | 2019-09-22 09:33 | PDOC ---
ORTHO PROGRESS NOTES Subjective Very little pain at rest, she feels like she made some reasonable progress with therapy yesterday Vitals Vital Signs Date Time Temp Pulse Resp B/P (MAP) Pulse Ox O2 Delivery O2 Flow Rate FiO2 09/22/19 09:13 93 Room Air 09/22/19 07:00 98.0 105 16 136/82 (100) 98.0 Labs Laboratory Tests Test 09/21/19 06:05 09/22/19 03:25 White Blood Count 4.9 x10^3/uL (4.0-11.0) 6.7 x10^3/uL (4.0-11.0) Red Blood Count 3.48 x10^6/uL (3.50-5.40) 3.72 x10^6/uL (3.50-5.40) Hemoglobin 10.9 g/dL (12.0-15.5) 11.5 g/dL (12.0-15.5) Hematocrit 32.6 % (36.0-47.0) 34.5 % (36.0-47.0) Mean Corpuscular Volume 94 fL (79-100) 93 fL (79-100) Mean Corpuscular Hemoglobin 31 pg (25-35) 31 pg (25-35) Mean Corpuscular Hemoglobin Concent 34 g/dL (31-37) 33 g/dL (31-37) Red Cell Distribution Width 14.0 % (11.5-14.5) 14.2 % (11.5-14.5) Platelet Count 93 x10^3/uL (140-400) 101 x10^3/uL (140-400) Neutrophils (%) (Auto) 79 % (31-73) 81 % (31-73) Lymphocytes (%) (Auto) 14 % (24-48) 11 % (24-48) Monocytes (%) (Auto) 6 % (0-9) 6 % (0-9) Eosinophils (%) (Auto) 0 % (0-3) 1 % (0-3) Basophils (%) (Auto) 0 % (0-3) 1 % (0-3) Neutrophils # (Auto) 3.9 x10^3/uL (1.8-7.7) 5.4 x10^3/uL (1.8-7.7) Lymphocytes # (Auto) 0.7 x10^3/uL (1.0-4.8) 0.8 x10^3/uL (1.0-4.8) Monocytes # (Auto) 0.3 x10^3/uL (0.0-1.1) 0.4 x10^3/uL (0.0-1.1) Eosinophils # (Auto) 0.0 x10^3/uL (0.0-0.7) 0.0 x10^3/uL (0.0-0.7) Basophils # (Auto) 0.0 x10^3/uL (0.0-0.2) 0.0 x10^3/uL (0.0-0.2) Sodium Level 143 mmol/L (136-145) 141 mmol/L (136-145) Potassium Level 4.0 mmol/L (3.5-5.1) 3.7 mmol/L (3.5-5.1) Chloride Level 107 mmol/L (98-107) 103 mmol/L (98-107) Carbon Dioxide Level 31 mmol/L (21-32) 28 mmol/L (21-32) Anion Gap 5 (6-14) 10 (6-14) Blood Urea Nitrogen 10 mg/dL (7-20) 9 mg/dL (7-20) Creatinine 0.5 mg/dL (0.6-1.0) 0.5 mg/dL (0.6-1.0) Estimated GFR (Cockcroft-Gault) 122.3 122.3 Glucose Level 112 mg/dL (70-99) 90 mg/dL (70-99) Calcium Level 8.1 mg/dL (8.5-10.1) 8.4 mg/dL (8.5-10.1) Laboratory Tests Test 09/22/19 03:25 White Blood Count 6.7 x10^3/uL (4.0-11.0) Red Blood Count 3.72 x10^6/uL (3.50-5.40) Hemoglobin 11.5 g/dL (12.0-15.5) Hematocrit 34.5 % (36.0-47.0) Mean Corpuscular Volume 93 fL (79-100) Mean Corpuscular Hemoglobin 31 pg (25-35) Mean Corpuscular Hemoglobin Concent 33 g/dL (31-37) Red Cell Distribution Width 14.2 % (11.5-14.5) Platelet Count 101 x10^3/uL (140-400) Neutrophils (%) (Auto) 81 % (31-73) Lymphocytes (%) (Auto) 11 % (24-48) Monocytes (%) (Auto) 6 % (0-9) Eosinophils (%) (Auto) 1 % (0-3) Basophils (%) (Auto) 1 % (0-3) Neutrophils # (Auto) 5.4 x10^3/uL (1.8-7.7) Lymphocytes # (Auto) 0.8 x10^3/uL (1.0-4.8) Monocytes # (Auto) 0.4 x10^3/uL (0.0-1.1) Eosinophils # (Auto) 0.0 x10^3/uL (0.0-0.7) Basophils # (Auto) 0.0 x10^3/uL (0.0-0.2) Sodium Level 141 mmol/L (136-145) Potassium Level 3.7 mmol/L (3.5-5.1) Chloride Level 103 mmol/L (98-107) Carbon Dioxide Level 28 mmol/L (21-32) Anion Gap 10 (6-14) Blood Urea Nitrogen 9 mg/dL (7-20) Creatinine 0.5 mg/dL (0.6-1.0) Estimated GFR (Cockcroft-Gault) 122.3 Glucose Level 90 mg/dL (70-99) Calcium Level 8.4 mg/dL (8.5-10.1) Notes She is awake and alert in bed. She remains neurovascularly intact left lower extremity. Dressing is intact, expected amount of dried bloody drainage. Assessment and Plan Dressing changed to Aquacel today. I am okay if she is discharged home with home health care, weight-bear as tolerated, Lovenox. She should follow-up in 2 to 3 weeks ZULMA HOFFMANN II, MD Sep 22, 2019 09:33
[2019-09-22 11:00] VITALS: BP 115/65
[2019-09-22] MEDS ORDERED: OXYC1TAB15 PO (11:30)
[2019-09-22] MEDS ORDERED: ENOX30DI3 SQ (11:30)
[2019-09-22] MEDS ORDERED: CHOL500021 PO (11:30)
--- NOTE | 2019-09-22 11:33 | SNU/HH DC ---
DISCHARGE WITH HOME HEALTH DISCHARGE INFORMATION: Discharge Date: Sep 22, 2019 Final Diagnosis: Closed right hip fracture Condition on Discharge: Stable CODE STATUS: Code Status: Full HOME HEALTH: Face to Face: I certify this patient is under my care and that I, or a nurse practitioner or physician's therapy assistant working with me, had a face to face encounter that meets the physician face to face encounter requirements with this patient on 09/22/2019. Medical Complications: DJD, FX RN For Eval/Treatment: Yes Physical Therapy For: Evalulation/Treatment Occupational Therapy For: Evaluation/Treatment Pt Meets Homebound Status: Unsteady balance w/ amb,, Limited distance walking POST DISCHARGE ORDERS: Activity Instructions for Disc: Resume previous activity Weight Bearing Status after Di: As tolerated DIET AFTER DISCHARGE: Regular Wound/Incision Care: Ice to area for comfort, Do not change dressing CHECKS AFTER DISCHARGE: Checks after discharge: Check blood press - daily CERTIFICATION STATEMENT: Certification Statement: Certification Statement: Based on the above finding, I certify that this patient is confined to the home and needs intermittent detention care, physical therapy and/or speech therapy, or continues to need occupational therapy.~ This patient is under my care, and I have initiated the establishment of the plan of care.~ This patient will be followed by myself or a community physician who will periodically review the plan of care. Home Meds Active Scripts Cholecalciferol (Vitamin D3) (D3-50) 50,000 Unit Capsule, 37317 UNIT PO WEEKLY for VItamin D Deficiency for 42 Days, #12 CAP Prov:RANJAN LAWSON MD 09/22/19 Enoxaparin Sodium (ENOXAPARIN SODIUM) 30 Mg/0.3 Ml Disp.syrin, 30 MG SQ Q24H for Thromboprophylaxis for 14 Days, #14 DIS.SYR Prov:RANJAN LAWSON MD 09/22/19 Oxycodone/Apap 5-325 (PERCOCET 5-325 MG TABLET ) 1 Each Tablet, 1 TAB PO PRN Q4HRS PRN for PAIN for 6 Days, #16 TAB Prov:RANJAN LAWSON MD 09/22/19 Reported Medications Albuterol Sulfate (PROAIR HFA INHALER) 8.5 Gm Hfa.aer.ad, 2 PUFF IH PRN Q4-6HRS PRN for wheezing for 21 Days, #1 INHALER 0 Refills 09/20/19 Aspirin (ASPIR-LOW) 81 Mg Tablet.dr, 1 TAB PO QHS for BLOOD THINNER, #30 TAB 3 Refills 09/20/19 Amlodipine Besylate (AMLODIPINE BESYLATE) 5 Mg Tablet, 5 MG PO HS for HIGH BLOOD PRESSURE, TAB 09/20/19 Atorvastatin Calcium (Atorvastatin Calcium) 80 Mg Tablet, 40 MG PO QHS for FOR HIGH CHOLESTEROL, TAB 09/20/19 RANJAN LAWSON MD Sep 22, 2019 11:32
--- NOTE | 2019-09-22 11:35 | PDOC ---
PROGRESS NOTES Chief Complaint Chief Complaint A/P: Fall - traumatic, accidental. WIll have PT work on balance post-operatively Left hip fracture - Intertrochanteric fx s/p ORIF with TFN on 09/20/2019. No further testing necessary. Pain control COPD - will cont prn nebs Smoker - nicotine patch. Counseled on cessation HLD - cont statin OA - will cont pain control VItamin D deficiency - likely playing a role. Needs osteoporosis screening given prior steroid exposure, age Protein calorie malnutrition - waitstaff to see FEN - General diet PPX - lovenox FULL CODE Dispo - inpatient for left hip fracture History of Present Illness History of Present Illness Ms Drake is a 69yo F w/ PMHx COPD, HTN, smoker, HLD, multiple orthopedic surgeries who presented to [facility] ED complaints of falling when she was attempting to put her pants on. Found with left intertrochanteric hip fracture. No history immunosuppression and history of travel. No history of previous fractures. No recent sick contacts. EKG shows a` sinus rhythm at 96 bpm. No findings of acute STEMI with contralate ral changes. Platelets 128, otherwise no abnormalities on labs After initial x-ray showed no obvious fracture patient was unable to ambulate due to left hip and leg pain. CT confirmed impacted intratrochanteric fracture of left femur. 09/19: ORIF with transfemoral nail 09/20: Hb 10 today. Feeling ok. Working with therapy, ny out. No CP or SOB. She wishes for home for rehabilitation Feeling much stronger and steady with therapy. Hb stable. No SOB or CP. No NVD. Passing flatus and BM. D/w ortho, will d/c home with HH and lovenox, f/u in 2-3 weeks. Vitals Vitals Vital Signs Date Time Temp Pulse Resp B/P (MAP) Pulse Ox O2 Delivery O2 Flow Rate FiO2 09/22/19 11:00 98.3 98 18 115/65 (82) 92 Room Air 98.3 Physical Exam General: Alert, Oriented X3, Cooperative, mild distress Abdomen: Normal bowel sounds, Soft, No tenderness, No hepatosplenomegaly, No masses Extremities: Other (left hip tender) Skin: No rashes, No breakdown, No significant lesion Labs LABS Laboratory Tests Test 09/22/19 03:25 White Blood Count 6.7 x10^3/uL (4.0-11.0) Red Blood Count 3.72 x10^6/uL (3.50-5.40) Hemoglobin 11.5 g/dL (12.0-15.5) Hematocrit 34.5 % (36.0-47.0) Mean Corpuscular Volume 93 fL (79-100) Mean Corpuscular Hemoglobin 31 pg (25-35) Mean Corpuscular Hemoglobin Concent 33 g/dL (31-37) Red Cell Distribution Width 14.2 % (11.5-14.5) Platelet Count 101 x10^3/uL (140-400) Neutrophils (%) (Auto) 81 % (31-73) Lymphocytes (%) (Auto) 11 % (24-48) Monocytes (%) (Auto) 6 % (0-9) Eosinophils (%) (Auto) 1 % (0-3) Basophils (%) (Auto) 1 % (0-3) Neutrophils # (Auto) 5.4 x10^3/uL (1.8-7.7) Lymphocytes # (Auto) 0.8 x10^3/uL (1.0-4.8) Monocytes # (Auto) 0.4 x10^3/uL (0.0-1.1) Eosinophils # (Auto) 0.0 x10^3/uL (0.0-0.7) Basophils # (Auto) 0.0 x10^3/uL (0.0-0.2) Sodium Level 141 mmol/L (136-145) Potassium Level 3.7 mmol/L (3.5-5.1) Chloride Level 103 mmol/L (98-107) Carbon Dioxide Level 28 mmol/L (21-32) Anion Gap 10 (6-14) Blood Urea Nitrogen 9 mg/dL (7-20) Creatinine 0.5 mg/dL (0.6-1.0) Estimated GFR (Cockcroft-Gault) 122.3 Glucose Level 90 mg/dL (70-99) Calcium Level 8.4 mg/dL (8.5-10.1) Comment Review of Relevant I have reviewed the following items evelyn (where applicable) has been applied. Labs Laboratory Tests Test 09/21/19 06:05 09/22/19 03:25 White Blood Count 4.9 x10^3/uL (4.0-11.0) 6.7 x10^3/uL (4.0-11.0) Red Blood Count 3.48 x10^6/uL (3.50-5.40) 3.72 x10^6/uL (3.50-5.40) Hemoglobin 10.9 g/dL (12.0-15.5) 11.5 g/dL (12.0-15.5) Hematocrit 32.6 % (36.0-47.0) 34.5 % (36.0-47.0) Mean Corpuscular Volume 94 fL (79-100) 93 fL (79-100) Mean Corpuscular Hemoglobin 31 pg (25-35) 31 pg (25-35) Mean Corpuscular Hemoglobin Concent 34 g/dL (31-37) 33 g/dL (31-37) Red Cell Distribution Width 14.0 % (11.5-14.5) 14.2 % (11.5-14.5) Platelet Count 93 x10^3/uL (140-400) 101 x10^3/uL (140-400) Neutrophils (%) (Auto) 79 % (31-73) 81 % (31-73) Lymphocytes (%) (Auto) 14 % (24-48) 11 % (24-48) Monocytes (%) (Auto) 6 % (0-9) 6 % (0-9) Eosinophils (%) (Auto) 0 % (0-3) 1 % (0-3) Basophils (%) (Auto) 0 % (0-3) 1 % (0-3) Neutrophils # (Auto) 3.9 x10^3/uL (1.8-7.7) 5.4 x10^3/uL (1.8-7.7) Lymphocytes # (Auto) 0.7 x10^3/uL (1.0-4.8) 0.8 x10^3/uL (1.0-4.8) Monocytes # (Auto) 0.3 x10^3/uL (0.0-1.1) 0.4 x10^3/uL (0.0-1.1) Eosinophils # (Auto) 0.0 x10^3/uL (0.0-0.7) 0.0 x10^3/uL (0.0-0.7) Basophils # (Auto) 0.0 x10^3/uL (0.0-0.2) 0.0 x10^3/uL (0.0-0.2) Sodium Level 143 mmol/L (136-145) 141 mmol/L (136-145) Potassium Level 4.0 mmol/L (3.5-5.1) 3.7 mmol/L (3.5-5.1) Chloride Level 107 mmol/L (98-107) 103 mmol/L (98-107) Carbon Dioxide Level 31 mmol/L (21-32) 28 mmol/L (21-32) Anion Gap 5 (6-14) 10 (6-14) Blood Urea Nitrogen 10 mg/dL (7-20) 9 mg/dL (7-20) Creatinine 0.5 mg/dL (0.6-1.0) 0.5 mg/dL (0.6-1.0) Estimated GFR (Cockcroft-Gault) 122.3 122.3 Glucose Level 112 mg/dL (70-99) 90 mg/dL (70-99) Calcium Level 8.1 mg/dL (8.5-10.1) 8.4 mg/dL (8.5-10.1) Laboratory Tests Test 09/22/19 03:25 White Blood Count 6.7 x10^3/uL (4.0-11.0) Red Blood Count 3.72 x10^6/uL (3.50-5.40) Hemoglobin 11.5 g/dL (12.0-15.5) Hematocrit 34.5 % (36.0-47.0) Mean Corpuscular Volume 93 fL (79-100) Mean Corpuscular Hemoglobin 31 pg (25-35) Mean Corpuscular Hemoglobin Concent 33 g/dL (31-37) Red Cell Distribution Width 14.2 % (11.5-14.5) Platelet Count 101 x10^3/uL (140-400) Neutrophils (%) (Auto) 81 % (31-73) Lymphocytes (%) (Auto) 11 % (24-48) Monocytes (%) (Auto) 6 % (0-9) Eosinophils (%) (Auto) 1 % (0-3) Basophils (%) (Auto) 1 % (0-3) Neutrophils # (Auto) 5.4 x10^3/uL (1.8-7.7) Lymphocytes # (Auto) 0.8 x10^3/uL (1.0-4.8) Monocytes # (Auto) 0.4 x10^3/uL (0.0-1.1) Eosinophils # (Auto) 0.0 x10^3/uL (0.0-0.7) Basophils # (Auto) 0.0 x10^3/uL (0.0-0.2) Sodium Level 141 mmol/L (136-145) Potassium Level 3.7 mmol/L (3.5-5.1) Chloride Level 103 mmol/L (98-107) Carbon Dioxide Level 28 mmol/L (21-32) Anion Gap 10 (6-14) Blood Urea Nitrogen 9 mg/dL (7-20) Creatinine 0.5 mg/dL (0.6-1.0) Estimated GFR (Cockcroft-Gault) 122.3 Glucose Level 90 mg/dL (70-99) Calcium Level 8.4 mg/dL (8.5-10.1) Medications Current Medications Ondansetron HCl (Zofran) 4 mg PRN Q4HRS PRN IV NAUSEA/VOMITING 1ST CHOICE; Start 09/20/19 at 05:15 Fentanyl Citrate (Fentanyl 2ml Vial) 50 mcg PRN Q4HRS PRN IVP SEVERE PAIN 7-10 Last administered on 09/20/19at 10:05; Start 09/20/19 at 05:15 Sodium Chloride 1,000 ml @ 75 mls/hr [id number] IV Last administered on 09/20/19at 14:49; Start 09/20/19 at 06:00 Morphine Sulfate 5 mg/Ketorolac Tromethamine 30 mg/Ropivacaine 60 ml/Epinephrine HCl 0.5 mg/Sodium Chloride 100 ml @ 100 mls/hr 1X ONCE INT ART Last administered on 09/20/19at 12:38; Start 09/20/19 at 08:00; Stop 09/20/19 at 08:59; Status DC Cefazolin Sodium (Ancef) 1 gm 1X ONCE IVP Last administered on 09/20/19at 12:10; Start 09/20/19 at 07:45; Stop 09/20/19 at 07:47; Status DC Ondansetron HCl (Zofran) 4 mg PRN Q6HRS PRN IV NAUSEA/VOMITING; Start 09/20/19 at 10:30; Stop 09/20/19 at 14:35; Status DC Fentanyl Citrate (Fentanyl 2ml Vial) 25 mcg PRN Q5MIN PRN IV MILD PAIN 1-3; Start 09/20/19 at 10:30; Stop 09/20/19 at 14:35; Status DC Fentanyl Citrate (Fentanyl 2ml Vial) 50 mcg PRN Q5MIN PRN IV MODERATE TO SEVERE PAIN Last administered on 09/20/19at 14:08; Start 09/20/19 at 10:30; Stop 09/20/19 at 14:35; Status DC Morphine Sulfate (Morphine Sulfate) 1 mg PRN Q10MIN PRN IV SEVERE PAIN 7-10; Start 09/20/19 at 10:30; Stop 09/20/19 at 14:35; Status DC Ringer's Solution 1,000 ml @ 30 mls/hr Q24H IV ; Start 09/20/19 at 10:26; Stop 09/20/19 at 14:35; Status DC Lidocaine HCl (Xylocaine-Mpf 1% 2ml Vial) 2 ml PRN 1X PRN ID PRIOR TO IV START; Start 09/20/19 at 10:30; Stop 09/20/19 at 14:36; Status DC Hydromorphone HCl (Dilaudid) 0.5 mg PRN Q10MIN PRN IV SEV PAIN, Second choice; Start 09/20/19 at 10:30; Stop 09/20/19 at 14:35; Status DC Prochlorperazine Edisylate (Compazine) 5 mg PACU PRN PRN IV NAUSEA, MRX1; Start 09/20/19 at 10:30; Stop 09/20/19 at 14:36; Status DC Propofol 20 ml @ As Directed STK-MED ONCE IV ; Start 09/20/19 at 10:54; Stop 09/20/19 at 10:55; Status DC Dexamethasone Sodium Phosphate (Decadron) 4 mg STK-MED ONCE .ROUTE ; Start 09/20/19 at 10:54; Stop 09/20/19 at 10:55; Status DC Lidocaine HCl (Lidocaine Pf 2% Vial) 5 ml STK-MED ONCE .ROUTE ; Start 09/20/19 at 10:54; Stop 09/20/19 at 10:55; Status DC Ondansetron HCl (Zofran) 4 mg STK-MED ONCE .ROUTE ; Start 09/20/19 at 10:54; Stop 09/20/19 at 10:55; Status DC Fentanyl Citrate (Fentanyl 2ml Vial) 100 mcg STK-MED ONCE .ROUTE ; Start 09/20/19 at 10:56; Stop 09/20/19 at 10:56; Status DC Enoxaparin Sodium (Lovenox 40mg Syringe) 40 mg Q24H SQ Last administered on 09/21/19at 08:03; Start 09/21/19 at 08:00; Stop 09/21/19 at 12:38; Status DC Oxycodone/ Acetaminophen (Percocet 5/325) 1 tab PRN Q4HRS PRN PO PAIN Last administered on 09/22/19at 09:13; Start 09/20/19 at 12:00 Cefazolin Sodium (Ancef) 1 gm Q8H IVP Last administered on 09/22/19at 03:46; Start 09/20/19 at 20:00; Stop 09/22/19 at 04:02; Status DC Albuterol Sulfate (Ventolin Hfa) 60 puff STK-MED ONCE INH ; Start 09/20/19 at 12:12; Stop 09/20/19 at 12:12; Status DC Albuterol Sulfate (Ventolin Neb Soln) 2.5 mg STK-MED ONCE .ROUTE ; Start 09/20/19 at 12:12; Stop 09/20/19 at 12:13; Status DC Fentanyl Citrate (Fentanyl 2ml Vial) 100 mcg STK-MED ONCE .ROUTE ; Start 09/20/19 at 13:44; Stop 09/20/19 at 13:44; Status DC Fentanyl Citrate (Fentanyl 2ml Vial) 100 mcg STK-MED ONCE .ROUTE ; Start 09/20/19 at 14:06; Stop 09/20/19 at 14:06; Status DC Vitamin D (Vitamin D3) 5,000 unit DAILY PO Last administered on 09/22/19at 09:10; Start 09/20/19 at 16:00 Albuterol Sulfate (Ventolin Neb Soln) 2.5 mg PRN Q4HRS PRN INH wheezing; Start 09/20/19 at 14:30 Amlodipine Besylate (Norvasc) 5 mg HS PO Last administered on 09/21/19at 21:39; Start 09/20/19 at 21:00 Aspirin (Ecotrin) 81 mg QHS PO Last administered on 09/21/19at 21:36; Start 09/20/19 at 21:00 Atorvastatin Calcium (Lipitor) 40 mg QHS PO Last administered on 09/21/19at 21:36; Start 09/20/19 at 21:00 Nicotine (Nicoderm Cq 21mg) 1 patch DAILY TD ; Start 09/20/19 at 14:45; Stop 09/21/19 at 08:23; Status DC Fentanyl Citrate (Fentanyl 2ml Vial) 50 mcg 1X ONCE IVP Last administered on 09/20/19at 14:42; Start 09/20/19 at 14:45; Stop 09/20/19 at 14:46; Status DC Nicotine (Nicoderm Cq 21mg) 1 patch 1X ONCE TD Last administered on 09/20/19at 21:42; Start 09/20/19 at 21:45; Stop 09/20/19 at 21:46; Status DC Nicotine (Nicoderm Cq 21mg) 1 patch QHS TD Last administered on 09/21/19at 21:39; Start 09/21/19 at 21:00 Furosemide (Lasix) 40 mg 1X ONCE PO ; Start 09/21/19 at 12:00; Stop 09/21/19 at 12:01; Status DC Enoxaparin Sodium (Lovenox 30mg Syringe) 30 mg Q24H SQ Last administered on 09/22/19at 09:10; Start 09/22/19 at 08:00 Psyllium Hydrophilic Mucilloid (Metamucil Fiber Packet) 1 pkt DAILY PO ; Start 09/21/19 at 13:30 Polyethylene Glycol (miraLAX PACKET) 17 gm DAILY PO ; Start 09/21/19 at 13:30 Active Scripts Active D3-50 (Cholecalciferol (Vitamin D3)) 50,000 Unit Capsule 50,000 Unit PO WEEKLY 42 Days Enoxaparin Sodium 30 Mg/0.3 Ml Disp.syrin 30 Mg SQ Q24H 14 Days Percocet 5-325 Mg Tablet (Oxycodone/Acetaminophen) 1 Each Tablet 1 Tab PO PRN Q4HRS PRN 6 Days Reported Proair Hfa Inhaler (Albuterol Sulfate) 8.5 Gm Hfa.aer.ad 2 Puff IH PRN Q4-6HRS PRN 21 Days Aspir-Low (Aspirin) 81 Mg Tablet.dr 1 Tab PO QHS Amlodipine Besylate 5 Mg Tablet 5 Mg PO HS Atorvastatin Calcium 80 Mg Tablet 40 Mg PO QHS Vitals/I & O Vital Sign - Last 24 Hours 09/21/19 09/21/19 09/21/19 09/21/19 13:22 14:22 15:00 16:11 Temp 97.7 97.7 97.7 97.7 Pulse 98 98 Resp 18 18 B/P (MAP) 123/70 (87) 123/70 (87) Pulse Ox 92 92 O2 Delivery Room Air Room Air Room Air Room Air 09/21/19 09/21/19 09/21/19 09/21/19 17:21 18:25 19:00 20:00 Temp 98.2 98.2 Pulse 98 Resp 18 B/P (MAP) 130/70 (90) Pulse Ox 93 O2 Delivery Room Air Room Air Room Air Room Air 09/21/19 09/21/19 09/21/19 09/21/19 21:36 21:39 22:36 23:04 Temp 99.5 99.5 Pulse 99 102 Resp 18 16 18 B/P (MAP) 150/77 128/61 (83) Pulse Ox 92 O2 Delivery Room Air Room Air Room Air 09/22/19 09/22/19 09/22/19 09/22/19 01:38 02:38 03:04 05:47 Temp 98.3 98.3 Pulse 100 Resp 18 14 18 14 B/P (MAP) 122/67 (85) Pulse Ox 92 O2 Delivery Room Air Room Air Room Air Room Air 09/22/19 09/22/19 09/22/19 09/22/19 06:36 07:00 08:00 09:13 Temp 98.0 98.0 Pulse 105 Resp 16 16 B/P (MAP) 136/82 (100) Pulse Ox 93 93 O2 Delivery Room Air Room Air Room Air Room Air 09/22/19 09/22/19 10:05 11:00 Temp 98.3 98.3 Pulse 98 Resp 18 B/P (MAP) 115/65 (82) Pulse Ox 93 92 O2 Delivery Room Air Room Air Intake and Output 09/21/19 09/21/19 09/22/19 15:00 23:00 07:00 Intake Total 160 ml 1150 ml Output Total 1700 ml 200 ml Balance 160 ml -1700 ml 950 ml RANJAN LAWSON MD Sep 22, 2019 11:35
--- NOTE | 2019-09-22 11:36 | PDOC3 ---
Discharge Summary Visit Information Date of Admission: Sep 20, 2019 Date of Discharge: Sep 22, 2019 Admitting Diagnosis: Closed Right hip fracture Final Diagnosis Closed right hip fracture Brief Hospital Course Allergies Allergies Coded Allergies Type Severity Reaction Last Updated Verified I S O L A T I O N *CONTACT* Allergy Unknown 09/22/19 Yes No Known Medication Allergies Allergy Unknown 09/22/19 Yes Vital Signs Vital Signs Date Time Temp Pulse Resp B/P (MAP) Pulse Ox O2 Delivery O2 Flow Rate FiO2 09/22/19 11:00 98.3 98 18 115/65 (82) 92 Room Air 98.3 Lab Results Laboratory Tests Test 09/21/19 06:05 09/22/19 03:25 White Blood Count 4.9 x10^3/uL (4.0-11.0) 6.7 x10^3/uL (4.0-11.0) Red Blood Count 3.48 x10^6/uL (3.50-5.40) 3.72 x10^6/uL (3.50-5.40) Hemoglobin 10.9 g/dL (12.0-15.5) 11.5 g/dL (12.0-15.5) Hematocrit 32.6 % (36.0-47.0) 34.5 % (36.0-47.0) Mean Corpuscular Volume 94 fL (79-100) 93 fL (79-100) Mean Corpuscular Hemoglobin 31 pg (25-35) 31 pg (25-35) Mean Corpuscular Hemoglobin Concent 34 g/dL (31-37) 33 g/dL (31-37) Red Cell Distribution Width 14.0 % (11.5-14.5) 14.2 % (11.5-14.5) Platelet Count 93 x10^3/uL (140-400) 101 x10^3/uL (140-400) Neutrophils (%) (Auto) 79 % (31-73) 81 % (31-73) Lymphocytes (%) (Auto) 14 % (24-48) 11 % (24-48) Monocytes (%) (Auto) 6 % (0-9) 6 % (0-9) Eosinophils (%) (Auto) 0 % (0-3) 1 % (0-3) Basophils (%) (Auto) 0 % (0-3) 1 % (0-3) Neutrophils # (Auto) 3.9 x10^3/uL (1.8-7.7) 5.4 x10^3/uL (1.8-7.7) Lymphocytes # (Auto) 0.7 x10^3/uL (1.0-4.8) 0.8 x10^3/uL (1.0-4.8) Monocytes # (Auto) 0.3 x10^3/uL (0.0-1.1) 0.4 x10^3/uL (0.0-1.1) Eosinophils # (Auto) 0.0 x10^3/uL (0.0-0.7) 0.0 x10^3/uL (0.0-0.7) Basophils # (Auto) 0.0 x10^3/uL (0.0-0.2) 0.0 x10^3/uL (0.0-0.2) Sodium Level 143 mmol/L (136-145) 141 mmol/L (136-145) Potassium Level 4.0 mmol/L (3.5-5.1) 3.7 mmol/L (3.5-5.1) Chloride Level 107 mmol/L (98-107) 103 mmol/L (98-107) Carbon Dioxide Level 31 mmol/L (21-32) 28 mmol/L (21-32) Anion Gap 5 (6-14) 10 (6-14) Blood Urea Nitrogen 10 mg/dL (7-20) 9 mg/dL (7-20) Creatinine 0.5 mg/dL (0.6-1.0) 0.5 mg/dL (0.6-1.0) Estimated GFR (Cockcroft-Gault) 122.3 122.3 Glucose Level 112 mg/dL (70-99) 90 mg/dL (70-99) Calcium Level 8.1 mg/dL (8.5-10.1) 8.4 mg/dL (8.5-10.1) Laboratory Tests Test 09/22/19 03:25 White Blood Count 6.7 x10^3/uL (4.0-11.0) Red Blood Count 3.72 x10^6/uL (3.50-5.40) Hemoglobin 11.5 g/dL (12.0-15.5) Hematocrit 34.5 % (36.0-47.0) Mean Corpuscular Volume 93 fL (79-100) Mean Corpuscular Hemoglobin 31 pg (25-35) Mean Corpuscular Hemoglobin Concent 33 g/dL (31-37) Red Cell Distribution Width 14.2 % (11.5-14.5) Platelet Count 101 x10^3/uL (140-400) Neutrophils (%) (Auto) 81 % (31-73) Lymphocytes (%) (Auto) 11 % (24-48) Monocytes (%) (Auto) 6 % (0-9) Eosinophils (%) (Auto) 1 % (0-3) Basophils (%) (Auto) 1 % (0-3) Neutrophils # (Auto) 5.4 x10^3/uL (1.8-7.7) Lymphocytes # (Auto) 0.8 x10^3/uL (1.0-4.8) Monocytes # (Auto) 0.4 x10^3/uL (0.0-1.1) Eosinophils # (Auto) 0.0 x10^3/uL (0.0-0.7) Basophils # (Auto) 0.0 x10^3/uL (0.0-0.2) Sodium Level 141 mmol/L (136-145) Potassium Level 3.7 mmol/L (3.5-5.1) Chloride Level 103 mmol/L (98-107) Carbon Dioxide Level 28 mmol/L (21-32) Anion Gap 10 (6-14) Blood Urea Nitrogen 9 mg/dL (7-20) Creatinine 0.5 mg/dL (0.6-1.0) Estimated GFR (Cockcroft-Gault) 122.3 Glucose Level 90 mg/dL (70-99) Calcium Level 8.4 mg/dL (8.5-10.1) Brief Hospital Course Ms Drake is a 69yo F w/ PMHx COPD, HTN, smoker, HLD, multiple orthopedic surgeries who presented to [facility] ED complaints of falling when she was attempting to put her pants on. Found with left intertrochanteric hip fracture. No history immunosuppression and history of travel. No history of previous fractures. No recent sick contacts. EKG shows a` sinus rhythm at 96 bpm. No findings of acute STEMI with contralateral changes. Platelets 128, otherwise no abnormalities on labs After initial x-ray showed no obvious fracture patient was unable to ambulate due to left hip and leg pain. CT confirmed impacted intratrochanteric fracture of left femur. 09/19: ORIF with transfemoral nail 09/20: Hb 10 today. Feeling ok. Working with therapy, ny out. No CP or SOB. She wishes for home for rehabilitation Feeling much stronger and steady with therapy. Hb stable. No SOB or CP. No NVD. Passing flatus and BM. D/w ortho, will d/c home with HH and lovenox, f/u in 2-3 weeks. Problem list: Fall - traumatic, accidental. WIll have PT work on balance post-operatively Left hip fracture - Intertrochanteric fx s/p ORIF with TFN on 09/20/2019. No further testing necessary. Pain control COPD - will cont prn nebs Smoker - nicotine patch. Counseled on cessation HLD - cont statin OA - will cont pain control VItamin D deficiency - likely playing a role. Needs osteoporosis screening given prior steroid exposure, age Protein calorie malnutrition - chief meter reader to see Greater than 30 minutes spent on d/c Discharge Information Condition at Discharge: Improved Follow Up: Weeks (1) Disposition/Orders: D/C to Home w/ HH Scheduled Amlodipine Besylate (Amlodipine Besylate) 5 Mg Tablet, 5 MG PO HS for HIGH BLOOD PRESSURE, (Reported) Entered as Reported by: MARY BYRNE on 09/20/19757 Last Taken: Unknown Dose on 09/18/19 Last Action: Continued on 09/20/191428 by RANJAN LAWSON MD Aspirin (Aspir-Low) 81 Mg Tablet.dr, 1 TAB PO QHS for BLOOD THINNER, #30 Ref 3 (Reported) Entered as Reported by: MARY BYRNE on 09/20/19757 Last Taken: Unknown Dose on 09/18/19 Last Action: Continued on 09/20/191428 by RANJAN LAWSON MD Atorvastatin Calcium (Atorvastatin Calcium) 80 Mg Tablet, 40 MG PO QHS for FOR HIGH CHOLESTEROL, (Reported) Entered as Reported by: MARY BYRNE on 09/20/19757 Last Taken: Unknown Dose on 09/18/19 Last Action: Converted on 09/20/191428 by RANJAN LAWSON MD Cholecalciferol (Vitamin D3) (D3-50) 50,000 Unit Capsule, 50,000 UNIT PO WEEKLY for VItamin D Deficiency for 42 Days, #12 Prescribed by: RANJAN LAWSON MD on 09/22/19 1130 Enoxaparin Sodium (Enoxaparin Sodium) 30 Mg/0.3 Ml Disp.syrin, 30 MG SQ Q24H for Thromboprophylaxis for 14 Days, #14 Prescribed by: RANJAN LAWSON MD on 09/22/19 1130 Scheduled PRN Albuterol Sulfate (Proair Hfa Inhaler) 8.5 Gm Hfa.aer.ad, 2 PUFF IH PRN Q4-6HRS PRN for wheezing for 21 Days, #1 Ref 0 (Reported) Entered as Reported by: MARY BYRNE on 09/20/19 0758 Last Taken: Unknown Dose on Unknown Date & Time Last Action: Continued on 09/20/191428 by RANJAN LAWSON MD Oxycodone/Apap 5-325 (Percocet 5-325 Mg Tablet ) 1 Each Tablet, 1 TAB PO PRN Q4HRS PRN for PAIN for 6 Days, #16 Prescribed by: RANJAN LAWSON MD on 09/22/191129 RANJAN LAWSON MD Sep 22, 2019 11:36
[2019-09-22] MEDS ORDERED: ENOXAPARIN 30 MG/0.3 ML SYRINGE. SQ ONE (12:00)
--- NOTE | 2019-09-22 15:30 | NUR ---
Discharge Note: MARGRET RIVERA Discharge instructions and discharge home medications reviewed with Patient and a copy given. All questions have been answered and understanding verbalized. The following instructions and handouts were given: information about incision care, medications, follow up appointments, etc. Aquacel dressing applied to incision site per dr order. Discontinued lines and drains: IV in right hand removed, catheter tip intact. Patient discharged to home with home health with , wheelchair used for mobility to discharge vehicle.
== END 2019-09-22 15:30 | disposition home health service (06) | DRG 481 ==
LOC: 4 NORTH 04:20
PROVIDERS: ADMIT Internal Medicine; ATTEND Internal Medicine
PROC: 0QS736Z Reposition Left Upper Femur with Intramedullary Internal Fixation Device, Percutaneous Approach (ICD-10-PCS; principal; 2019-09-20 11:45)
DX: S72.142A Displaced intertrochanteric fracture of left femur, initial encounter for closed fracture (principal); E46 Unspecified protein-calorie malnutrition; Z68.1 Body mass index [BMI] 19.9 or less, adult; E55.9 Vitamin D deficiency, unspecified; E78.5 Hyperlipidemia, unspecified; F17.210 Nicotine dependence, cigarettes, uncomplicated; I10 Essential (primary) hypertension; J44.9 Chronic obstructive pulmonary disease, unspecified; M48.061 Spinal stenosis, lumbar region without neurogenic claudication; M51.36 Other intervertebral disc degeneration, lumbar region; Q76.49 Other congenital malformations of spine, not associated with scoliosis; W18.30XA Fall on same level, unspecified, initial encounter; Y93.89 Activity, other specified; Y92.89 Other specified places as the place of occurrence of the external cause; Y99.8 Other external cause status; Z90.710 Acquired absence of both cervix and uterus; Z91.041 Radiographic dye allergy status; Z82.49 Family history of ischemic heart disease and other diseases of the circulatory system
CPT/HCPCS: 36415; 76000; 80048; 80053; 82306; 85025; 85610; 87641; A7015; C1713; C1887; J0171; J0690; J1100; J1650; J1885; J2001; J2270; J2405; J2704; J2795; J3010; J7030; J7120; 97110; 97116; 97530; G0378; J7613